=== PATIENT | male | born 1975 | race Caucasian/White ===

== ENCOUNTER 2021-07-13 16:18 | Inpatient (IN) | payer MEDICAID, SELFPAY ==
[2021-07-13 16:20] VITALS: BP 155/109; PULSE 103; RESP 17; TEMP 36.3; O2SAT 95; BMI 36.3
--- NOTE | 2021-07-13 16:33 | EDS_ITS ---
HPI History of Present Illness Chief Complaint: Substance Abuse Informant: patient Narrative Narrative: Patient presents requesting detox from alcohol. He lives in [place] and went to a detox center in [place] who did not have any bed availability. It was recommended he come in here for detox. Patient states he has been drinking regularly for the last 5 or 6 years. He usually drinks 1/5 of alcohol a day. Last drink was approximately 5 hours ago. Patient states he tried going through an outpatient program a couple years ago. He did have significant withdrawal symptoms but never had seizure. He states he is currently on Suboxone as well and has been on this for the past 2 years. He had previously used heroin but states that last use was 5 or [address] [facility] Medical History Anxiety Hypertension Allergy/AdvReac Type Severity Reaction Status Date / Time No Known Allergies Allergy Verified 07/13/21 16:19 Social History (Updated 07/13/21 @ 16:[address] Keturah Nation MD) Smoking Status: Current every day smoker tobacco type: cigarettes alcohol intake: current alcohol intake frequency: 3 or more drinks per day ROS ROS ED Constitutional Constitutional ED: Denies chills or fever(s) Eyes Eyes: Denies change in vision ENT ENT ED: Denies sore throat Cardiovascular Cardiovascular: Denies chest pain Respiratory/Chest Respiratory/Chest: Reports other Details: Wheezing ; Denies cough or dyspnea Gastrointestinal Gastrointestinal: Denies abdominal pain, diarrhea, nausea or vomiting Genitourinary Genitourinary ED: Denies dysuria Musculoskeletal Musculoskeletal: Denies back pain Integumentary Denies rash Neurologic Neurologic: Denies headache(s) or weakness Allergic/Immunologic Allergic/Immunologic ED: Denies urticaria EXAM Physical Exam Const Vital Signs: 07/13/21 16:20 Temperature 97.3 F L Temperature Source Temporal Pulse Rate 103 H Respiratory Rate 17 Blood Pressure 155/109 H Blood Pressure Mean 124 Pulse Ox 95 Oxygen Delivery Method Room Air Positive well nourished and well developed General Appearance ED: well developed HEENT Reports normocephalic and head/scalp atraumatic Eyes PERRL and EOMs intact bilaterally Neck supple Chest Wall inspection of chest normal and palpation of chest normal Resp normal respiratory effort Resp Narrative: Mild bilateral expiratory wheezes throughout. Auscultation: wheezes expiratory wheezes Cardio regular rate and regular rhythm GI normal to inspection, nondistended, normoactive bowel sounds Palpation: soft Extremity normal to inspection Neuro oriented x3 and no sensory deficits noted Sensorium / Orientation: alert Motor Exam: strength 5/5 throughout Psych mental status grossly normal Skin no rashes or lesions noted MDM MDM MDM Narrative Medical decision making narrative: Lab work for addiction medicine is undertaken. Lab Data Attestation: I reviewed the patient's lab results. Labs: Laboratory Results - last 24 hr 07/13/21 07/13/21 07/13/21 16:40 16:42 16:42 WBC 8.8 RBC 5.10 Hgb 16.6 H Hct 49.2 MCV 96.5 H MCH 32.5 H MCHC 33.7 RDW Std Deviation 50.3 H RDW Coeff of Richa 14.1 Plt Count 258 MPV 8.7 Immature Gran % (Auto) 0.200 Neut % (Auto) 58.7 Lymph % (Auto) 28.3 [place] % (Auto) 8.4 Eos % (Auto) 3.6 Baso % (Auto) 0.8 Absolute Neuts (auto) 5.2 Absolute Lymphs (auto) 2.49 Nucleated RBC % 0 Sodium 141 Potassium 3.6 Chloride 109 H Carbon Dioxide 28.0 Anion Gap 4 L BUN 9 Creatinine 0.85 Estim Creat Clear Calc 107.29 Est GFR (MDRD) Af Amer 126 Est GFR (MDRD) Non-Af 104 BUN/Creatinine Ratio 10.6 Glucose 108 H Calcium 8.3 L Total Bilirubin 0.30 AST 475 H ALT 478 H Alkaline Phosphatase 112 Total Protein 8.0 Albumin 3.4 Globulin 4.6 H Albumin/Globulin Ratio 0.7 L Urine Opiates Screen NEGATIVE Urine Methadone Screen NEGATIVE Ur Barbiturates Screen NEGATIVE Ur Phencyclidine Scrn NEGATIVE Ur Amphetamines Screen NEGATIVE U Methamphetamin-MDMA NEGATIVE U Benzodiazepines Scrn NEGATIVE Urine Cocaine Screen NEGATIVE U Cannabinoids Screen NEGATIVE Ur Drug Screen Comment Ethyl Alcohol 07/13/21 16:42 WBC RBC Hgb Hct MCV MCH MCHC RDW Std Deviation RDW Coeff of Richa Plt Count MPV Immature Gran % (Auto) Neut % (Auto) Lymph % (Auto) [place] % (Auto) Eos % (Auto) Baso % (Auto) Absolute Neuts (auto) Absolute Lymphs (auto) Nucleated RBC % Sodium Potassium Chloride Carbon Dioxide Anion Gap BUN Creatinine Estim Creat Clear Calc Est GFR (MDRD) Af Amer Est GFR (MDRD) Non-Af BUN/Creatinine Ratio Glucose Calcium Total Bilirubin AST ALT Alkaline Phosphatase Total Protein Albumin Globulin Albumin/Globulin Ratio Urine Opiates Screen Urine Methadone Screen Ur Barbiturates Screen Ur Phencyclidine Scrn Ur Amphetamines Screen U Methamphetamin-MDMA U Benzodiazepines Scrn Urine Cocaine Screen U Cannabinoids Screen Ur Drug Screen Comment Ethyl Alcohol 349.0 H* Treatment and Re-Evaluation Comments:: Lab work is significant for transaminitis with ALT and AST in the 470 range. Alcohol level is 349. Patient has signed the detox agreement for the hospital. I will speak with the hospitalist regarding admission. Discharge Plan Triage Chief Complaint: Substance Abuse ED Provider: Keturah Nation Dx/Rx/DC Orders Clinical Impression: Desire for detoxification Referrals: EDSON FERNANDES [Other] Disposition Disposition: Acute Care Hospital [facility]
[2021-07-13 17:05] LABS: Amphetamine Urine VISTA NEGATIVE (<1000 ng/mL); Barbiturate Urine VISTA NEGATIVE (< 200 ng/mL); Benzodiazepine Urine VISTA NEGATIVE (< 200 ng/mL); Cocaine Urine VISTA NEGATIVE (< 300 ng/mL); Ecstacy Urine VISTA NEGATIVE (< 500 ng/mL); Methadone Urine VISTA NEGATIVE (< 300 ng/mL); PCP Urine VISTA NEGATIVE (< 25 ng/mL); THC Urine VISTA NEGATIVE (< 50 ng/mL); Vista UDS pH Range 5
[2021-07-13 17:06] LABS: Absolute Lymphocyte Count 2.49 X10^3/uL (0.83-4.51); Absolute Neutrophil Count 5.2 X10^3/uL (2.0-7.7); Basophil# 0.07 X10^3/uL; Basophil% 0.8 % (0-1); Eosinophil# 0.32 X10^3/uL; Eosinophils% 3.6 % (0-5); Hematocrit 49.2 % (40-54); Hemoglobin 16.6 g/dL (13.0-16.5); Lymphocyte # 2.49 X10^3/ul (0.83-4.51); Lymphocyte % 28.3 % (19-41); Mean Corp Hgb Conc 33.7 g/dL (32-36); Mean Corpuscular Hgb 32.5 pg (27.0-32.0); Mean Corpuscular Volume 96.5 fL (80-94); Mean Platelet Vol. 8.7 fl (6.2-12.0); Monocyte# 0.74 X10^3/uL; Monocyte% 8.4 % (0-10); NRBC Flagged by Analyzer 0 % (0-5); Neutrophil # 5.15 X10^3/uL (2.7-7.7); Neutrophil % 58.7 % (47-70); Platelet Count 258 K/mm3 (150-450); RBC Distribution Width CV 14.1 % (11.6-14.6); RBC Distribution Width SD 50.3 fl (35.1-43.9); White Blood Count 8.8 K/mm3 (4.4-11.0)
[2021-07-13 17:23] LABS: ALB/GLOB Ratio 0.7 RATIO (0.9-2.4); AST(SGOT) 475 U/L (15-37); Alanine Aminotransfer ALT/SGPT 478 U/L (16-61); Albumin, Serum 3.4 g/dL (3.2-5.0); Alkaline Phosphatase 112 U/L (45-117); Anion Gap 4 (5-15); BUN 9 mg/dL (7-18); BUN/Creat Ratio 10.6 RATIO (10-20); Calcium,Total 8.3 mg/dL (8.5-10.1); Chloride 109 mmol/L (98-107); Creatinine, Serum 0.85 mg/dL (0.70-1.30); EST Glomerular Filtration Rate 104 mL/min (>60); Est Glom Filt Rate - Afr Amer 126 mL/min (>60); Estimated Creatinine Clearance 107.29 ml/min; Globulin 4.6 g/dL (2.2-4.2); Glucose 108 mg/dL (74-106); Potassium 3.6 mmol/L (3.5-5.1); Sodium Level 141 mmol/L (136-145)
--- NOTE | 2021-07-13 17:45 | NURSING ---
MED SURG JOPPERI ALCOHOL DETOX
--- NOTE | 2021-07-13 18:07 | HP.PCM.HOS_ITS ---
HPI - General General Date of Admission: 07/13/21 Date of Service: 07/13/21 Chief Complaint: alcohol withdrawal HPI Narrative ALEC MOJICA, is a 46 M who presents seeking treatment for alcohol withdrawal. Patient drinks 1/5 of liquor daily. States that he has tried stopping and starts getting shakes and get some Xanax off the street to help him with some of his symptoms but oysters swords back to drinking. Patient was advised by his primary care physician is also av specialist to come to [facility] for further treatment. Patient had drug screen that was negative but his alcohol level was 349. He received albuterol in the emergency room. Patient's last drink was about 5 hours prior to arrival. [facility] Medical History (Updated 07/13/21 @ 18:[address] Deonte Vieyra DO) Anxiety Hepatitis C Heroin abuse Hypertension Allergy/AdvReac Type Severity Reaction Status Date / Time No Known Allergies Allergy Verified 07/13/21 16:19 Family History (Updated 07/13/21 @ 18:[address] Deonte Vieyra DO) Other Addiction Social History (Updated 07/13/21 @ 18:[address] Deonte Vieyra DO) Smoking Status: Heavy Smoker (>10/day) alcohol intake: current alcohol intake frequency: 3 or more drinks per day substance use type: former substance user Date of last use: Heroin and other details: Illicit benzodiazepines ROS ROS Narrative Nausea, vomiting. Tremulousness. Denies hallucinations. All review of systems were negative except as mentioned above in the history of present illness and the other review of systems. Vital Signs Vital Signs Vital Signs: 07/13/21 16:20 Temperature 36.3 C L Temperature Source Temporal Pulse Rate 103 H Respiratory Rate 17 Blood Pressure 155/109 H Blood Pressure Mean 124 Pulse Ox 95 Oxygen Delivery Method Room Air Weight Weight: 108.272 kg Body Mass Index (BMI) 36.3 Physical Exam Const alert and no apparent distress General Appearance: cooperative HEENT normocephalic and head/scalp atraumatic Eyes PERRL Resp normal respiratory effort, no retractions, no use of accessory muscles and clear to auscultation bilaterally Cardio regular rate, regular rhythm, S1 normal heart sound and S2 normal heart sound GI normal to inspection, nondistended, normoactive bowel sounds, soft to palpation, non-tender and non-distended Extremity normal to inspection Skin no rashes or lesions noted Psych Mood & Affect: anxious Results Lab / Micro Data Attestation: I reviewed the patient's lab results. Result Diagrams: 07/13/21 16:42 07/13/21 16:42 Labs: Laboratory Results - last 24 hr 07/13/21 16:40: Urine Opiates Screen NEGATIVE, Urine Methadone Screen NEGATIVE, Ur Barbiturates Screen NEGATIVE, Ur Phencyclidine Scrn NEGATIVE, Ur Amphetamines Screen NEGATIVE, U Methamphetamin-MDMA NEGATIVE, U Benzodiazepines Scrn NEGATIVE, Urine Cocaine Screen NEGATIVE, U Cannabinoids Screen NEGATIVE, Ur Drug Screen Comment 07/13/21 16:42: WBC 8.8, RBC 5.10, Hgb 16.6 H, Hct 49.2, MCV 96.5 H, MCH 32.5 H, MCHC 33.7, RDW Std Deviation 50.3 H, RDW Coeff of Richa 14.1, Plt Count 258, MPV 8.7, Immature Gran % (Auto) 0.200, Neut % (Auto) 58.7, Lymph % (Auto) 28.3, [place] % (Auto) 8.4, Eos % (Auto) 3.6, Baso % (Auto) 0.8, Absolute Neuts (auto) 5.2, Absolute Lymphs (auto) 2.49, Nucleated RBC % 0 07/13/21 16:42: Sodium 141, Potassium 3.6, Chloride 109 H, Carbon Dioxide 28.0, Anion Gap 4 L, BUN 9, Creatinine 0.85, Estim Creat Clear Calc 107.29, Est GFR (MDRD) Af Amer 126, Est GFR (MDRD) Non-Af 104, BUN/Creatinine Ratio 10.6, Glucose 108 H, Calcium 8.3 L, Total Bilirubin 0.30, AST 475 H, ALT 478 H, Alkaline Phosphatase 112, Total Protein 8.0, Albumin 3.4, Globulin 4.6 H, Albumin/Globulin Ratio 0.7 L 07/13/21 16:42: Ethyl Alcohol 349.0 H* Micro: Microbiology 07/13/21 16:40 Nasal Secretion SARS-CoV-2 Antigen (Rapid) - Final Assessment & Plan Assessment/Plan (1) Alcohol withdrawal: QUALIFIERS: Complication of substance-induced condition: uncomplicated Qualified Code(s): F10.230 - Alcohol dependence with withdrawal, uncomplicated PLAN: 1. Acute alcohol withdrawal * Patient has a history of alcohol withdrawal seizures as well as delirium tremens. * Patient will be started on phenobarbital but is possible the patient may have more severe symptoms warranting more aggressive treatment * Thiamine and folate * Addiction medicine to see and to facilitate outpatient treatment program. Patient was going to a program in [place] but would prefer something closer as he lives in [place]. 2. History of heroin abuse * On Suboxone as outpatient. Verified with [facility] 3. Anxiety * Will complicate long-term care and recovery * Patient would benefit from treatment but would hold off at this time 4. Hepatitis C * AST and ALT are 475 and 478, respectively. * Patient not undergoing treatment at this time given his ongoing alcohol treatment. * Follow-up with infectious disease or gastroenterology as outpatient once he can maintain sobriety to see if he be a candidate for treatment. 5. VTE prophylaxis: Not indicated. Encourage ambulation. Charges/Coding Visit Charges Inpatient E&M: 55593 Init Hosp L2
[2021-07-13 18:09] VITALS: BP 146/101; PULSE 78; RESP 16; TEMP 37.1; O2SAT 95
[2021-07-13 18:27] VITALS: BP 141/100; PULSE 83; RESP 18; TEMP 36.6; O2SAT 97; BMI 36.3
[2021-07-13] MEDS: Phenobarbital 32.4 MG Tablet PO ×2 (19:41→23:16)
[2021-07-13] MEDS: hydrOXYzine PAM 25 MG Capsule 50 MG PO (20:33)
[2021-07-13 23:00] VITALS: RESP 15
[2021-07-13 23:13] VITALS: BP 142/103; PULSE 76; RESP 15; TEMP 36.4; O2SAT 94
[2021-07-13 23:22] VITALS: BP 142/103; PULSE 76; RESP 15; TEMP 36.4; O2SAT 94
[2021-07-14] VITALS (7 sets, daily range): BP systolic 145–170; BP diastolic 75–120; PULSE 62–75; RESP 15–18; TEMP 36.4–37.3; O2SAT 94–97
[2021-07-14] MEDS: Phenobarbital 32.4 MG Tablet PO ×6 (03:24→22:24)
[2021-07-14] MEDS: hydrOXYzine PAM 25 MG Capsule 50 MG PO ×3 (07:18→22:24)
--- NOTE | 2021-07-14 08:42 | NURSING ---
pt in bed resting well now after vistaril. pt not feeling like eating breakfast at this time. will give am meds with next phenobarb dose to promote rest. pt instructed to call if need for any prn meds.
[2021-07-14] MEDS: Ondansetron 8 MG Tablet PO ×2 (10:37→22:24)
[2021-07-14] MEDS: traZODone 100 MG Tablet PO (10:37)
[2021-07-14] MEDS: Thiamine Hydrochloride 100 MG Tablet PO (10:38)
[2021-07-14] MEDS: Folic Acid 1 MG Tablet PO (10:38)
--- NOTE | 2021-07-14 11:15 | ADDICTION ---
This fiction and nonfiction writer prose met with PT to conduct ASAM, MSE, AUDIT, DUDIT assessments and to plan for d/c. PT A+Ox4 and participated actively. PT plans to f/u with residential treatment once placement is found.
--- NOTE | 2021-07-14 12:39 | NURSING ---
bp elevated and clonodine order in now as well as home med list
--- NOTE | 2021-07-14 12:45 | PCM.PN.HOSP ---
Subjective Subjective Resting comfortably, hypertensive will restart his home meds. CIWA of 4 Objective Data Objective Data Vital Signs: Vital Signs Temp Pulse Resp BP Pulse Ox 97.6 F L 75 16 160/118 H 95 07/14/21 11:00 07/14/21 11:00 07/14/21 11:00 07/14/21 11:00 07/14/21 11:00 Oxygen Delivery Method Room Air Weight: 238 lb 11.2 oz Body Mass Index (BMI) 36.3 Intake & Output: Intake and Output for Last 24 Hours 07/13/21 07/14/21 07/15/21 03:59 03:59 03:59 Intake Total 460 / 460 200 / 200 Balance 460 / 460 200 / 200 Lab / Micro Data Result Diagrams: 07/13/21 16:42 07/13/21 16:42 Labs: Laboratory Results - last 24 hr 07/13/21 16:40: Urine Opiates Screen NEGATIVE, Urine Methadone Screen NEGATIVE, Ur Barbiturates Screen NEGATIVE, Ur Phencyclidine Scrn NEGATIVE, Ur Amphetamines Screen NEGATIVE, U Methamphetamin-MDMA NEGATIVE, U Benzodiazepines Scrn NEGATIVE, Urine Cocaine Screen NEGATIVE, U Cannabinoids Screen NEGATIVE, Ur Drug Screen Comment 07/13/21 16:42: WBC 8.8, RBC 5.10, Hgb 16.6 H, Hct 49.2, MCV 96.5 H, MCH 32.5 H, MCHC 33.7, RDW Std Deviation 50.3 H, RDW Coeff of Richa 14.1, Plt Count 258, MPV 8.7, Immature Gran % (Auto) 0.200, Neut % (Auto) 58.7, Lymph % (Auto) 28.3, [place] % (Auto) 8.4, Eos % (Auto) 3.6, Baso % (Auto) 0.8, Absolute Neuts (auto) 5.2, Absolute Lymphs (auto) 2.49, Nucleated RBC % 0 07/13/21 16:42: Sodium 141, Potassium 3.6, Chloride 109 H, Carbon Dioxide 28.0, Anion Gap 4 L, BUN 9, Creatinine 0.85, Estim Creat Clear Calc 107.29, Est GFR (MDRD) Af Amer 126, Est GFR (MDRD) Non-Af 104, BUN/Creatinine Ratio 10.6, Glucose 108 H, Calcium 8.3 L, Total Bilirubin 0.30, AST 475 H, ALT 478 H, Alkaline Phosphatase 112, Total Protein 8.0, Albumin 3.4, Globulin 4.6 H, Albumin/Globulin Ratio 0.7 L 07/13/21 16:42: Ethyl Alcohol 349.0 H* Micro: Microbiology 07/13/21 16:40 Nasal Secretion SARS-CoV-2 Antigen (Rapid) - Final Physical Exam Const alert, oriented x3 and no apparent distress General Appearance: cooperative HEENT normocephalic and moist oral mucous membranes Eyes PERRL, EOMs intact bilaterally and conjunctivae normal Neck supple and no JVD Resp normal respiratory effort, no retractions, no use of accessory muscles and clear to auscultation bilaterally Auscultation: Negative for crackles, rales, rhonchi or wheezes Cardio regular rate, regular rhythm, S1 normal heart sound, S2 normal heart sound and no murmurs GI soft to palpation, non-tender and non-distended; Negative for hepatosplenomegaly Extremity no clubbing, cyanosis or edema Skin no rashes or lesions noted Neuro no focal motor deficits and no sensory deficits noted Psych affect normal Appearance: appropriate Assessment & Plan Assessment/Plan (1) Alcohol withdrawal: QUALIFIERS: Complication of substance-induced condition: uncomplicated Qualified Code(s): F10.230 - Alcohol dependence with withdrawal, uncomplicated PLAN: 1. Acute alcohol withdrawal/history of heroin abuse/anxiety/hepatitis C -He does have a history of withdrawal seizures and DTs, continue with the phenobarbital taper per the alcohol withdrawal protocol -If necessary can start him on Librium -Addiction medicine is looking into residential placement and he is from [place] would prefer something closer -He does have a history of heroin abuse, can continue his Suboxone while here -He does have a history of hepatitis C that he cannot maintain treatment for until he is sober and off of alcohol and heroin recommend that he follow-up as an outpatient with the GI DVT: Ambulation Charges/Coding Visit Charges Inpatient E&M: 32309 Subs Hosp L2
[2021-07-14] MEDS: Dicyclomine 10 MG Capsule 20 MG PO (13:45)
[2021-07-14] MEDS: Gabapentin 300 MG Capsule PO (13:45)
[2021-07-14] MEDS: BUPRENORPHINE HCL 8 MG TAB.SUBL SL ×2 (15:01→22:24)
[2021-07-14] MEDS: cloNIDine HCl 0.2 MG Tablet PO ×2 (15:20→22:24)
--- NOTE | 2021-07-14 15:55 | CHAPLAIN ---
Type of Pastoral Visit _x__ Initial Visit ___ Follow-up Visit ___ On-call Visit ___ General Patient Visit ___ Spiritual Assessment ___ Family Conference ___ Bereavement ___ Rapid Response ___ Code Blue ___ Other (describe below) Pastoral Care Referral From _x__ Patient ___ Family ___ Nurse ___ Physician ___ Fashion Consultant ___ Wet Press Tender ___ Other (describe below) Sacrament/Intervention _x__ Active listening ___ Anointing ___ Adventist ___ Bereavement ___ Communion _x__ Angie exploration ___ ___ Life review _x__ Prayer ___ Reconciliation ___ Sacrament of Sick _x__ Supportive presence ___ Wedding ___ Other (describe below) Pastoral Comments patient states he is tired and is not interested in company however he welcomes acknowledgement of support and the prayers of this cutting tool sharpener; pt states he has family support and a plan for counseling in place
[2021-07-14] MEDS: Acetaminophen 325 MG Tablet 650 MG PO ×2 (17:46→22:24)
[2021-07-14] MEDS: hydrALAZINE 20 MG/ML Vial 10 MG IV (18:48)
[2021-07-14] MEDS: 0.9% Saline Lock 10 ML Syringe IV (18:48)
[2021-07-14] MEDS: LORazepam 2 MG/ML Syringe 1 MG IV (18:49)
[2021-07-14] MEDS: LORazepam 1 MG Tablet PO (22:25)
[2021-07-15 02:54] VITALS: BP 131/88; PULSE 71; RESP 16; TEMP 37.2; O2SAT 97
[2021-07-15] MEDS: Phenobarbital 32.4 MG Tablet PO ×6 (02:58→22:57)
[2021-07-15] MEDS: LORazepam 1 MG Tablet PO ×4 (02:58→22:57)
[2021-07-15] MEDS: hydrOXYzine PAM 25 MG Capsule 50 MG PO ×3 (02:58→22:57)
[2021-07-15] MEDS: Thiamine Hydrochloride 100 MG Tablet PO (08:06)
[2021-07-15] MEDS: Folic Acid 1 MG Tablet PO (08:06)
[2021-07-15] MEDS: Sertraline 100 MG Tablet PO (10:10)
[2021-07-15] MEDS: cloNIDine HCl 0.2 MG Tablet PO ×2 (10:10→22:57)
[2021-07-15] MEDS: BUPRENORPHINE HCL 8 MG TAB.SUBL SL ×2 (10:11→22:57)
--- NOTE | 2021-07-15 10:51 | PCM.PN.HOSP ---
Subjective Subjective Seems much better now with the addition of Ativan as needed. We will continue both that and the phenobarbital. CIWA of 7 this morning Objective Data Objective Data Vital Signs: Vital Signs Temp Pulse Resp BP Pulse Ox 98.9 F 71 16 131/88 H 97 07/15/21 02:54 07/15/21 02:54 07/15/21 02:54 07/15/21 02:54 07/15/21 02:54 Oxygen Delivery Method Room Air Weight: 238 lb 11.2 oz Body Mass Index (BMI) 36.3 Intake & Output: Intake and Output for Last 24 Hours 07/14/21 07/15/21 07/16/21 03:59 03:59 03:59 Intake Total 460 / 460 700 / 700 Balance 460 / 460 700 / 700 Lab / Micro Data Result Diagrams: 07/13/21 16:42 07/13/21 16:42 Micro: Microbiology 07/13/21 16:40 Nasal Secretion SARS-CoV-2 Antigen (Rapid) - Final Physical Exam Const alert, oriented x3 and no apparent distress General Appearance: cooperative HEENT normocephalic and moist oral mucous membranes Eyes PERRL, EOMs intact bilaterally and conjunctivae normal Neck supple and no JVD Resp normal respiratory effort, no retractions, no use of accessory muscles and clear to auscultation bilaterally Auscultation: Negative for crackles, rales, rhonchi or wheezes Cardio regular rate, regular rhythm, S1 normal heart sound, S2 normal heart sound and no murmurs GI soft to palpation, non-tender and non-distended; Negative for hepatosplenomegaly Extremity no clubbing, cyanosis or edema Skin no rashes or lesions noted Neuro no focal motor deficits and no sensory deficits noted Psych affect normal Appearance: appropriate Assessment & Plan Assessment/Plan (1) Alcohol withdrawal: QUALIFIERS: Complication of substance-induced condition: uncomplicated Qualified Code(s): F10.230 - Alcohol dependence with withdrawal, uncomplicated PLAN: 1. Acute alcohol withdrawal/history of heroin abuse/anxiety/hepatitis C -He does have a history of withdrawal seizures and DTs, continue with the phenobarbital taper per the alcohol withdrawal protocol -Continue with Ativan as needed -Addiction medicine is looking into residential placement and he is from [place] would prefer something closer -He does have a history of heroin abuse, can continue his Suboxone while here -He does have a history of hepatitis C that he cannot obtain treatment for until he is sober and off of alcohol and heroin recommend that he follow-up as an outpatient with the GI DVT: Ambulation Charges/Coding Visit Charges Inpatient E&M: 27570 Subs Hosp L2
[2021-07-15 11:00] VITALS: BP 143/110; PULSE 78; RESP 16; TEMP 36.4; O2SAT 94
[2021-07-15 15:00] VITALS: BP 187/101; PULSE 82; RESP 18; TEMP 36.5; O2SAT 94
--- NOTE | 2021-07-15 15:22 | NURSING ---
rep from [facility] called in and pt talking with pt
[2021-07-15 16:26] VITALS: BP 187/101; PULSE 81
[2021-07-15] MEDS: hydrALAZINE 20 MG/ML Vial 10 MG IV (16:26)
[2021-07-15 18:22] VITALS: BP 153/118; PULSE 87; RESP 16; TEMP 36.2; O2SAT 95
[2021-07-15 20:37] VITALS: BP 156/97; PULSE 76; RESP 18; TEMP 36.6; O2SAT 97
[2021-07-16 03:00] VITALS: BP 149/90; PULSE 73; RESP 18; TEMP 36.6; O2SAT 94
[2021-07-16] MEDS: hydrOXYzine PAM 25 MG Capsule 50 MG PO ×3 (03:00→17:46)
[2021-07-16] MEDS: Phenobarbital 32.4 MG Tablet PO ×4 (03:00→21:00)
[2021-07-16 07:00] VITALS: BP 169/118; PULSE 69; RESP 16; TEMP 36.4; O2SAT 92
[2021-07-16] MEDS: cloNIDine HCl 0.2 MG Tablet PO ×2 (08:31→21:00)
[2021-07-16] MEDS: Sertraline 100 MG Tablet PO (08:31)
[2021-07-16] MEDS: Thiamine Hydrochloride 100 MG Tablet PO (08:31)
[2021-07-16] MEDS: Folic Acid 1 MG Tablet PO (08:31)
[2021-07-16] MEDS: LORazepam 1 MG Tablet PO (08:32)
--- NOTE | 2021-07-16 09:18 | PN.HOSP_ITS ---
Subjective Subjective Doing better with the addition of Ativan as needed. Objective Data Objective Data Vital Signs: Vital Signs Temp Pulse Resp BP Pulse Ox 97.6 F L 69 16 169/118 H 92 07/16/21 07:00 07/16/21 07:00 07/16/21 07:00 07/16/21 07:00 07/16/21 07:00 Oxygen Delivery Method Room Air Weight: 238 lb 11.2 oz Body Mass Index (BMI) 36.3 Intake & Output: Intake and Output for Last 24 Hours 07/15/21 07/16/21 07/17/21 03:59 03:59 03:59 Intake Total 700 / 700 500 / 500 540 / 540 Balance 700 / 700 500 / 500 540 / 540 Lab / Micro Data Result Diagrams: 07/13/21 16:42 07/13/21 16:42 Micro: Microbiology 07/13/21 16:40 Nasal Secretion SARS-CoV-2 Antigen (Rapid) - Final Physical Exam Const alert, oriented x3 and no apparent distress General Appearance: cooperative HEENT normocephalic and moist oral mucous membranes Eyes PERRL, EOMs intact bilaterally and conjunctivae normal Neck supple and no JVD Resp normal respiratory effort, no retractions, no use of accessory muscles and clear to auscultation bilaterally Auscultation: Negative for crackles, rales, rhonchi or wheezes Cardio regular rate, regular rhythm, S1 normal heart sound, S2 normal heart sound and no murmurs GI soft to palpation, non-tender and non-distended; Negative for hepatosplenomegaly Extremity no clubbing, cyanosis or edema Skin no rashes or lesions noted Neuro no focal motor deficits and no sensory deficits noted Psych affect normal Appearance: appropriate Assessment & Plan Assessment/Plan (1) Alcohol withdrawal: QUALIFIERS: Complication of substance-induced condition: uncomplicated Qualified Code(s): F10.230 - Alcohol dependence with withdrawal, uncomplicated PLAN: 1. Acute alcohol withdrawal/history of heroin abuse/anxiety/hepatitis C -He does have a history of withdrawal seizures and DTs, continue with the phenobarbital taper per the alcohol withdrawal protocol -Continue with Ativan as needed -Addiction medicine is looking into residential placement and he is from [place] would prefer something closer. Today he got a little bit agitated and said that we cannot force him to go to residential treatment despite the fact that it was his idea and his request. I discussed with him that he can leave whenever he wants, this seemed to have calmed him down and he is willing to stay to continue with the withdrawal protocol -He does have a history of heroin abuse, can continue his Suboxone while here -He does have a history of hepatitis C that he cannot obtain treatment for until he is sober and off of alcohol and heroin recommend that he follow-up as an outpatient with the GI 2. HTN -His clonidine was restarted on admission however his blood pressure still elevated therefore we will trial him on Norvasc DVT: Ambulation Charges/Coding Visit Charges Inpatient E&M: 52549 Subs Hosp L2
--- NOTE | 2021-07-16 10:07 | NURSING ---
0900- pt seemed calmer after speaking to on the phone this am. breakfast order called down for pt.
[2021-07-16] MEDS: BUPRENORPHINE HCL 8 MG TAB.SUBL SL ×2 (10:17→21:01)
[2021-07-16] MEDS: amLODIPine 10 MG Tablet PO (10:18)
[2021-07-16 12:14] VITALS: BP 137/90; PULSE 79; RESP 18; TEMP 36.7; O2SAT 100
[2021-07-16] MEDS: Acetaminophen 325 MG Tablet 650 MG PO (12:17)
[2021-07-16 14:35] VITALS: BP 131/90; PULSE 79; RESP 18; TEMP 36.8; O2SAT 100
[2021-07-16] MEDS: Gabapentin 300 MG Capsule PO (19:44)
[2021-07-16 19:46] VITALS: BP 139/93; PULSE 89; RESP 18; TEMP 36.8; O2SAT 96
[2021-07-16] MEDS: traZODone 100 MG Tablet PO (23:15)
[2021-07-17] MEDS: LORazepam 1 MG Tablet PO (00:05)
[2021-07-17 03:00] VITALS: BP 123/83; PULSE 60; RESP 18; TEMP 36.7; O2SAT 94
[2021-07-17] MEDS: Phenobarbital 32.4 MG Tablet PO ×2 (03:13→09:09)
[2021-07-17 09:10] VITALS: BP 130/77; PULSE 73; RESP 16; TEMP 36.6; O2SAT 96
[2021-07-17] MEDS: Sertraline 100 MG Tablet PO (09:10)
[2021-07-17] MEDS: cloNIDine HCl 0.2 MG Tablet PO (09:10)
[2021-07-17] MEDS: Thiamine Hydrochloride 100 MG Tablet PO (09:10)
[2021-07-17] MEDS: Folic Acid 1 MG Tablet PO (09:11)
[2021-07-17] MEDS: BUPRENORPHINE HCL 8 MG TAB.SUBL SL (09:16)
[2021-07-17] MEDS: amLODIPine 10 MG Tablet PO (09:16)
--- NOTE | 2021-07-17 09:43 | NURSING ---
Addendum entered by Arti Kaufman 07/17/21 10:41: pt states he has someone coming to pick him up but they are not here yet, requesting to go outside to smoke, informed pt that he cannot come back to his room after he leaves, verbalized understanding, reminded him to remove nicotine patch prior to smoking. also this RN requested to hold on to pt keys until his ride is physically here, pt agreeable and provided RN with car keys. Original Note: pt requesting to leave, explained that he would be leaving against medical advice and that we cannot allow him to drive due to the medications in his system. he is agreeable to waiting on unit until his ride arrives.
--- NOTE | 2021-07-17 10:34 | PCM.PN.HOSP ---
Subjective Subjective Feels much better, doing well overnight. No new issues. Objective Data Objective Data Vital Signs: Vital Signs Temp Pulse Resp BP Pulse Ox 97.9 F 73 16 130/77 H 96 07/17/21 09:10 07/17/21 09:10 07/17/21 09:10 07/17/21 09:10 07/17/21 09:10 Oxygen Delivery Method Room Air Weight: 238 lb 11.2 oz Body Mass Index (BMI) 36.3 Intake & Output: Intake and Output for Last 24 Hours 07/16/21 07/17/21 07/18/21 03:59 03:59 03:59 Intake Total 500 / 500 1400 / 1400 Balance 500 / 500 1400 / 1400 Lab / Micro Data Result Diagrams: 07/13/21 16:42 07/13/21 16:42 Micro: Microbiology 07/13/21 16:40 Nasal Secretion SARS-CoV-2 Antigen (Rapid) - Final Physical Exam Const alert, oriented x3 and no apparent distress General Appearance: cooperative HEENT normocephalic and moist oral mucous membranes Eyes PERRL, EOMs intact bilaterally and conjunctivae normal Neck supple and no JVD Resp normal respiratory effort, no retractions, no use of accessory muscles and clear to auscultation bilaterally Auscultation: Negative for crackles, rales, rhonchi or wheezes Cardio regular rate, regular rhythm, S1 normal heart sound, S2 normal heart sound and no murmurs GI soft to palpation, non-tender and non-distended; Negative for hepatosplenomegaly Extremity no clubbing, cyanosis or edema Skin no rashes or lesions noted Neuro no focal motor deficits and no sensory deficits noted Psych affect normal Appearance: appropriate Assessment & Plan Assessment/Plan (1) Alcohol withdrawal: QUALIFIERS: Complication of substance-induced condition: uncomplicated Qualified Code(s): F10.230 - Alcohol dependence with withdrawal, uncomplicated PLAN: 1. Acute alcohol withdrawal/history of heroin abuse/anxiety/hepatitis C -He does have a history of withdrawal seizures and DTs, continue with the phenobarbital taper per the alcohol withdrawal protocol -Continue with Ativan as needed -Addiction medicine is looking into residential placement and he is from [place] would prefer something closer. Today he got a little bit agitated and said that we cannot force him to go to residential treatment despite the fact that it was his idea and his request. I discussed with him that he can leave whenever he wants, this seemed to have calmed him down and he is willing to stay to continue with the withdrawal protocol -He does have a history of heroin abuse, can continue his Suboxone while here -He does have a history of hepatitis C that he cannot obtain treatment for until he is sober and off of alcohol and heroin recommend that he follow-up as an outpatient with the GI -Wants to leave AMA, I discussed with him that it would be best for him to stay to go to residential treatment but he does not want to do this. He says that he feels great and is already been here for 5 days. I said that he feels good because the medications that he still receiving including the Ativan which she had received at midnight. He still cannot leave [place] 2. HTN -His clonidine was restarted on admission however his blood pressure still elevated therefore we will trial him on Norvasc -Discussed that he will need to follow-up with his PCP for monitoring of his blood pressure. DVT: Ambulation Charges/Coding Visit Charges Inpatient E&M: 45598 Subs Hosp L2
--- NOTE | 2021-07-17 11:55 | NURSING ---
keys given to patients friend who is driving him home. pt and friend aware that he can not drive due to medications he was given while at the hospital. pt verifies understanding and agreeable.
== END 2021-07-17 10:30 | disposition left against medical advice (07) | DRG 770 ==
LOC: ED 17:38 → MS2 18:26
PROVIDERS: Emergency Provider Emergency Medicine; Visit Provider Family Medicine
DX: F10.230 Alcohol dependence with withdrawal, uncomplicated (principal); F11.10 Opioid abuse, uncomplicated; F17.210 Nicotine dependence, cigarettes, uncomplicated; F41.9 Anxiety disorder, unspecified; I10 Essential (primary) hypertension; Z86.19 Personal history of other infectious and parasitic diseases; Y90.8 Blood alcohol level of 240 mg/100 ml or more
CPT/HCPCS: 80053; 80307; 82077; 85025; 87426; 94640; 99284; 99406; A4216

== ENCOUNTER 2021-09-27 23:07 | Observation (INO) | payer MEDICAID, SELFPAY ==
[2021-09-27 22:38] VITALS: BMI 33.6
[2021-09-27 22:48] VITALS: BP 167/103; PULSE 70; RESP 17; TEMP 35.8; O2SAT 96
--- NOTE | 2021-09-27 22:53 | EKG12_ITS ---
Test Reason : CP Blood Pressure : / mmHG Vent. Rate : 065 BPM Atrial Rate : 065 BPM P-R Int : 128 ms QRS Dur : 106 ms QT Int : 406 ms P-R-T Axes : -18 -21 -09 degrees QTc Int : 422 ms Normal sinus rhythm Normal ECG No previous ECGs available Confirmed by PORFIRIO HERNANDEZ, NOHEMI ([id number]), book editor REID DE LA PAZ ([id number]) on 09/29/2021 10:14:26 AM Referred By: Confirmed By:NOHEMI MONROY MD
[2021-09-27 23:04] VITALS: PULSE 67
--- NOTE | 2021-09-27 23:07 | ECHOD_ITS ---
Reason For Study: Chest Pain Procedure This was a 2D Doppler, Color Flow transthoracic echocardiogram. Exam performed portable in patient room. The exam was abbreviated due to the COVID 19 protocol. Left Ventricle Normal LV size. Mild concentric left ventricular hypertrophy. Left ventricular systolic function is normal. The estimated ejection fraction is 55 %. No regional wall motion abnormalities noted. Right Ventricle Normal RV size. Normal systolic function. Great Vessels Normal aortic root. The pulmonary artery is normal size. Pericardium/Pleural No pericardial effusion. MMode/2D Measurements & Calculations LVIDd: 5.8 cm IVSd: 1.3 cm LVIDs: 4.2 cm LVPWd: 1.3 cm FS: 28.2 % ECHO/Echo Complete Interpretation Summary Normal LV size. Left ventricular systolic function is normal. The estimated ejection fraction is 55 %. Mild concentric left ventricular hypertrophy. Ordering Physician: Melba Verduzco Performed By: Shantel Saab RDCS, RVT
--- NOTE | 2021-09-27 23:13 | PCM.HP.STD ---
HPI - General General Date of Admission: 09/27/21 Date of Service: 09/27/21 Chief Complaint: Chest pain HPI Narrative ALEC MOJICA, is a 46 M who presented to the emergency department at [facility] [place] on 09/27/2021 with a history of acute onset midsternal chest pain that started 1 day prior to his presentation and was constant in nature since then. He had no radiation on presentation but did report some radiation to his left arm the day prior. He had no diaphoresis, dyspnea, nausea, or emesis. While in the emergency department at [place] he was placed on Nitropaste and had symptom improvement. His vital signs were stable in the emergency department other than a mildly elevated blood pressure at 153/108. His oxygen saturations were 96 on room air. His CBC was unremarkable, his BMP was unremarkable other than some mild hyponatremia with a sodium of 132. A rapid Covid test was obtained per ED protocol at [facility] and was found to be positive. The patient has been vaccinated with only 1 Pfizer vaccination in May. He has had no symptoms consistent with COVID-19. A CTA was performed given his chest pain was found to have no PE or acute dissection along with no other acute findings. High-sensitivity troponin was obtained and his initial was 15, a second was 17 and a third was 12. The upper limit of normal on their range was 12 and therefore he had mild troponin elevation. His EKG was normal sinus rhythm without any acute evidence of ischemia. He was also treated with aspirin in addition to the Nitropaste and given Tylenol x1 dose in the emergency department at [facility] [place]. Given mildly elevated troponin on their range request for transfer for admission was made and the patient was accepted. Unfortunately with the patient being Covid positive stress test would not be able to be performed at this time and the patient is aware. The plan is to cycle his cardiac enzymes contain an echocardiogram and make decisions from those results. The patient also admits to ongoing alcohol use/addiction. He indicates he drinks at least 6 beers a day and also drinks whiskey on a fairly regular basis but not daily. He has had withdrawal issues in the past. He is interested in quitting and we will therefore consult 180 for evaluation and placed on a phenobarbital taper. [facility] Medical History Anxiety EtOH dependence Hepatitis C Heroin abuse Hypertension Home Medications buprenorphine-naloxone [Suboxone] 1 tab SUBLINGUAL BID 07/14/21 [History Last Taken 09/26/21] clonidine HCl 0.2 mg PO BID 07/14/21 [History Last Taken 09/26/21] sertraline 100 mg PO DAILY 07/14/21 [History Last Taken 09/26/21] Allergy/AdvReac Type Severity Reaction Status Date / Time No Known Allergies Allergy Verified 09/27/21 22:46 Family History Other Addiction Surgical History no surgical history no surgical history Social History (Updated 09/27/21 @ 23:[address] Melba Verduzco DO) Smoking Status: Heavy Smoker (>10/day) alcohol intake: former substance use type: former substance user Date of last use: Heroin and other details: Illicit benzodiazepines ROS Constitutional Constitutional: Denies anorexia, change in weight, chills, fatigue, fever(s), malaise, night sweats, weakness or other Eyes Eyes: Denies blurry vision, change in eye color, change in vision, discharge from eye(s), double vision, erythema, eye pain, loss of vision or other ENT HEENT: Denies abnormal hearing, dysphagia, ear pain, epistaxis, headache(s), hearing loss, nasal congestion, nasal discharge, post nasal drip, sinus pressure, sore throat or other Cardiovascular Cardiovascular: Reports chest pain and other Respiratory/Chest Respiratory/Chest: Denies cough, dyspnea, excessive phlegm production, hemoptysis, productive cough, shortness of breath at rest, shortness of breath with exertion, wheezing or other Gastrointestinal Gastrointestinal: Reports vomiting; Denies abdominal pain, coffee ground emesis, constipation, diarrhea, dyspepsia, hematemesis, hematochezia, loose stools, melena, nausea or other Genitourinary Genitourinary: Denies burning urination, difficulty urinating, dysuria, hematuria, nocturia, urinary frequency, urinary hesitancy, urinary incontinence, urinary urgency or other Musculoskeletal Musculoskeletal: Denies arthralgias, back pain, joint pain, joint stiffness, joint swelling, myalgias, neck pain or other Neurologic Neurologic: Denies abnormal gait, abnormal speech, confusion, disequilibrium, dizziness, focal weakness, headache(s), numbness, paresthesias, seizure-like activity, seizures, syncope, tingling, tremor(s) or other Psychiatric Psychiatric: Denies anxiety, depression, homicidal ideation, suicidal ideation or other Endocrine Endocrinology: Denies change in body appearance, cold intolerance, excessive sweating, heat intolerance, polydipsia, polyuria or other Hematologic/Lymphatic Hematologic/Lymphatic: Denies anemia, easy bleeding, easy bruising, lymphadenopathy or other Allergic/Immunologic Allergic/Immunologic: Denies rhinitis, hives, eczemia, asthma or other Vital Signs Vital Signs Vital Signs: 09/27/21 22:48 09/27/21 22:52 09/27/21 23:04 Temperature 96.5 F L Temperature Source Temporal Pulse Rate 70 67 Respiratory Rate 17 Respiratory Effort Normal Non-Labored Respiratory Depth Normal Respiratory Pattern Normal Blood Pressure 167/103 H Blood Pressure Mean 124 Blood Pressure Source Monitor Blood Pressure Position Supine Blood Pressure Location Right Arm Pulse Ox 96 Oxygen Delivery Method Room Air Room Air Weight Weight: 109.4 kg Body Mass Index (BMI) 33.6 Physical Exam Const alert, oriented x3 and no apparent distress Constitutional Narrative: Overweight middle-aged white male who appears older than stated age, pleasant, nontoxic seeing at bedside General Appearance: cooperative HEENT normocephalic, head/scalp atraumatic, hearing grossly normal bilaterally and moist oral mucous membranes HEENT Narrative: Edentulous, Mallampati 2, no thrush Eyes PERRL, EOMs intact bilaterally and conjunctivae normal Eyes Narrative: No scleral icterus Neck no lymphadenopathy, supple, no JVD and no carotid bruits Neck Narrative: Trachea midline, no thyroid enlargement Resp normal respiratory effort, no retractions, no use of accessory muscles and clear to auscultation bilaterally Auscultation: Negative for crackles, rales, rhonchi or wheezes Cardio regular rate, regular rhythm, S1 normal heart sound, S2 normal heart sound, no murmurs, no rub, no gallops, no clicks and no JVD GI normal to inspection, nondistended, normoactive bowel sounds, soft to palpation, non-tender and non-distended Extremity no clubbing, cyanosis or edema Peripheral Pulses: Yes pulses 2+ throughout Skin no rashes or lesions noted, no wounds, skin turgor normal, no jaundice, no petechiae and no mottling Neuro oriented x3, CN's II-XII intact bilaterally, moves all extremities and no focal motor deficits Sensorium / Orientation: awake and alert Speech: speech normal Motor Exam: strength 5/5 throughout Psych affect normal Psych Narrative: Very pleasant Results Lab / Micro Data Attestation: I reviewed the patient's lab results. Assessment & Plan Assessment/Plan (1) Chest pain: (2) COVID-19 virus infection: PLAN: Chest pain -Currently resolved with Nitropaste -Continue as needed sublingual nitroglycerin -Cycle cardiac enzymes -Check a.m. echocardiogram for wall motion abnormality -Given the fact that the patient is Covid positive we will not be able to perform a stress test at this time -If his cardiac enzymes are normal and his echocardiogram shows no wall motion abnormality I suspect we should be able to discharge him with recommendations for follow-up stress test once he has resolved his COVID-19 infection and out of quarantine -If he has troponin elevation and/or wall motion abnormality on his echocardiogram will likely need to consult cardiology -Check lipids -Continue aspirin daily -Patient did receive a 324 mg in the emergency department at [place] COVID-19 infection -Patient is overall asymptomatic -Treatment indicated at this time -Patient has had 1 dose of Pfizer vaccine -Recommend further vaccination after discharge and patient is out of quarantine Hypertension -Continue home clonidine -As needed hydralazine for systolic greater than 160 -Monitor for further needs History of opiate addiction/alcohol addiction -Continue home Suboxone -he is currently in remission with regards to opiate addiction -Has ongoing addiction issues with alcohol -Has had withdrawal in the past -Start phenobarbital taper -Supportive medications -CIWA -180 consultation Chronic hepatitis C -No acute issues Depression -Continue sertraline Tobacco abuse -Recommend cessation -Nicotine patch available DVT prophylaxis -Subcu Lovenox -SCDs CODE STATUS -Full code Charges/Coding Visit Charges Inpatient E&M: 33145 Init Hosp L3
[2021-09-27] MEDS: cloNIDine HCl 0.2 MG Tablet PO (23:35)
[2021-09-28] VITALS (9 sets, daily range): BP systolic 152–164; BP diastolic 104–109; PULSE 66–75; RESP 16–18; TEMP 36.6–37.1; O2SAT 95–99
[2021-09-28 00:19] LABS: Troponin-I HS 14 pg/mL (3.0-78.0)
[2021-09-28] MEDS: Phenobarbital 32.4 MG Tablet 97.2 MG PO ×3 (00:21→08:53)
[2021-09-28] MEDS: Gabapentin 300 MG Capsule PO (00:21)
[2021-09-28] MEDS: traZODone 100 MG Tablet PO (00:21)
[2021-09-28 03:18] LABS: Troponin-I HS 14 pg/mL (3.0-78.0)
[2021-09-28] MEDS: hydrALAZINE 20 MG/ML Vial 10 MG IV (05:10)
[2021-09-28] MEDS: 0.9% Saline Lock 10 ML Syringe IV (05:13)
[2021-09-28 06:34] LABS: Absolute Lymphocyte Count 1.48 X10^3/uL (0.83-4.51); Absolute Neutrophil Count 2.5 X10^3/uL (2.0-7.7); Basophil# 0.04 X10^3/uL; Basophil% 0.8 % (0-1); Eosinophil# 0.02 X10^3/uL; Eosinophils% 0.4 % (0-5); Hematocrit 41.3 % (40-54); Hemoglobin 13.8 g/dL (13.0-16.5); Lymphocyte # 1.48 X10^3/ul (0.83-4.51); Lymphocyte % 30.6 % (19-41); Mean Corp Hgb Conc 33.4 g/dL (32-36); Mean Corpuscular Hgb 32.5 pg (27.0-32.0); Mean Corpuscular Volume 97.2 fL (80-94); Mean Platelet Vol. 9.1 fl (6.2-12.0); Monocyte# 0.73 X10^3/uL; Monocyte% 15.1 % (0-10); NRBC Flagged by Analyzer 0 % (0-5); Neutrophil # 2.53 X10^3/uL (2.7-7.7); Neutrophil % 52.3 % (47-70); Platelet Count 233 K/mm3 (150-450); RBC Distribution Width CV 13.2 % (11.6-14.6); RBC Distribution Width SD 47.4 fl (35.1-43.9); Red Blood Count 4.25 M/mm3 (4.6-6.2); White Blood Count 4.8 K/mm3 (4.4-11.0)
[2021-09-28 06:53] LABS: Troponin-I HS 16 pg/mL (3.0-78.0)
[2021-09-28 07:04] LABS: ALB/GLOB Ratio 0.7 RATIO (0.9-2.4); AST(SGOT) 29 U/L (15-37); Alanine Aminotransfer ALT/SGPT 28 U/L (16-61); Albumin, Serum 3.2 g/dL (3.2-5.0); Alkaline Phosphatase 69 U/L (45-117); Anion Gap 8 (5-15); BUN 8 mg/dL (7-18); BUN/Creat Ratio 8.7 RATIO (10-20); Calcium,Total 8.9 mg/dL (8.5-10.1); Chloride 100 mmol/L (98-107); Cholesterol 136 mg/dL (200); Creatinine, Serum 0.92 mg/dL (0.70-1.30); EST Glomerular Filtration Rate 95 mL/min (>60); Est Glom Filt Rate - Afr Amer 115 mL/min (>60); Estimated Creatinine Clearance 109.13 ml/min; Globulin 4.7 g/dL (2.2-4.2); Glucose 94 mg/dL (74-106); High Density Lipoprotein 63 mg/dL; Magnesium 2.3 mg/dL (1.6-2.6); Phosphorus 3.8 mg/dL (2.5-4.9); Potassium 3.7 mmol/L (3.5-5.1); Protein, Total 7.9 g/dL (6.4-8.2); Sodium Level 136 mmol/L (136-145); Triglycerides 80 mg/dL; Very Low Density Lipoprotein 16 mg/dL (5-40)
[2021-09-28] MEDS: Sertraline 100 MG Tablet PO (08:52)
[2021-09-28] MEDS: Folic Acid 1 MG Tablet PO (08:52)
[2021-09-28] MEDS: Enoxaparin 40 MG/0.4 ML Syringe SC (08:53)
[2021-09-28] MEDS: cloNIDine HCl 0.2 MG Tablet PO (08:53)
[2021-09-28] MEDS: Aspirin E.C. 81 MG Tablet PO (08:53)
[2021-09-28] MEDS: Thiamine Hydrochloride 100 MG Tablet PO (08:53)
--- NOTE | 2021-09-28 09:48 | CASEMGMT ---
Pt states does not want ETOH detox at [facility] at this time. Pt states is already connected with [facility] in [facility] and plans to make OP appt with them at discharge. Pt states his has contact info and plans to make pt appt. Pt states does not want to speak with 180 at this time. Eder DIMAS and Dr. Casiano updated, voice understanding. Pt's troponins are negative and plan would be for OP ST after pt out of COVID quarantine. Pt is on room air and voices no further questions/concerns/needs. Benjamin DIMAS CM
--- NOTE | 2021-09-28 09:58 | PCM.DC ---
Discharge Instructions Diet Discharge Diet: 2000 mg Sodium Diet Activity Discharge Activity: May Not Drive Weight Bearing Status: Weight bearing as tolerated Dressing / Incision Call your doctor if you observe: Fever of 101 or Higher, Coldness, Increased Pain, Numbness or Tingling, Change in Color, Inability to urinate, Inability to have a bowel movement, Shortness of breath, Dizziness, Fainting spells, Swelling in the ankles, Chest pain, Prolonged hiccupping, Increased palpitations (irregular heartbeat), Calf discomfort and Uncontrolled pain Follow Up Care Test Results: Test results from this visit will be discussed in further detail at your follow-up appointment, if applicable. Discharge Plan Admission Admit Date/Time: 09/27/21 23:07 Primary Reason for Your Visit: Attending Provider: Keyur Casiano Instructions Additional Instructions / Restrictions: Self quarantine for 2 weeks from 09/27/2021 Discharge Orders/Prescriptions Prescriptions: Continued sertraline 100 mg Tablet 100 mg PO DAILY RF: 0 buprenorphine-naloxone 8-2 mg Tablet, Sublingual 1 tab SUBLINGUAL BID RF: 0 clonidine HCl 0.2 mg Tablet 0.2 mg PO BID Qty: 0 RF: 0 Referrals / Follow Up: EDSON FERNANDES [Other] (Follow-up in 1 week for chest pain. Might need stress test after quarantine is completed) Disposition Disposition (needs filled in before D/C Order can be placed): Home, Self Care
--- NOTE | 2021-09-28 12:02 | DS.PCM_ITS ---
Providers Date of Admission: 09/27/21 Primary Care Physician: EDSON FERNANDES Reason For Visit: CHEST PAIN Diagnosis Discharge Diagnosis (1) Chest pain: Status: Acute Code(s): R07.9 - Chest pain, unspecified (2) COVID-19 virus infection: Status: Acute Code(s): U07.1 - COVID-19 Medications at Discharge Home Medications buprenorphine-naloxone 1 tab SUBLINGUAL BID 07/14/21 sertraline 100 mg PO DAILY 07/14/21 clonidine HCl 0.2 mg PO BID #0 tab 09/28/21 Hospital Course Summary of Care Provided Hospital Course: , HDL 63.This 46-year-old gentleman admitted with atypical chest pain. Patient has no associated symptoms of shortness of breath, diaphoresis, nausea, vomiting, PND or exertional dyspnea. Patient was admitted in PCU and serial troponin enzymes negative. Furthermore patient had 2D echo and reported EF 55%, mild concentric LVH, no RWMA. Patient recommended further stress test once out of Covid isolation. Fasting profile within normal limit, LDL 57, HDL 63. Acute coronary syndrome ruled out Patient also had COVID-19 infection. He had 1 dose of Pfizer vaccine. Recommended to complete vaccination once out of isolation. CTA chest did not show PE or acute dissection. Patient pulse ox 96% on room air. Recommended 2 weeks of isolation from positive test done 10/11/2021. Patient also has active alcohol use, 6 beers daily with history of chronic alcohol use and dependence. Patient had opioid use in the past and is on Subutex at home. Patient does not want phenobarbitone or other alcohol detoxification/medical status and treatment. He wants to go home. Other comorbidities include chronic hepatitis C, anxiety and depression, chronic smoking/tobacco use dependence. Discharge medication reconciliation done. Discharge follow-up instructions completed. Discharge process discussed with the patient and all questions were answered to patient's satisfaction. Total time spent, exact 35 minutes on discharge meds reconciliation, examination, coordination of care with nurses and ancillary staff, review of imaging and blood test and discussion with the patient on follow-up instructions Physical Exam Narrative Seen and examined Patient was admitted directly from [place] [facility] with midsternal chest pain. Serial troponins were followed and found to be negative. Patient also has chronic alcohol use and dependence with history of opioid use and dependence in the past and is on Subutex for that. He quit opioid use about 3 years ago. Currently drinks alcohol about 6 beers daily. Patient also had Covid rapid test positive. Had 1 dose of Pfizer vaccine in May. Serial troponins are negative. Patient does not want to stay for alcohol detoxification therapy but wants to go home. 2D echo was done. General: Alert, Oriented x3, Cooperative HEENT: Atraumatic, PERRLA, EOMI, Normocephalic Oral: No Gingival or Mucosal Lesions/ Ulcerations Neck: Supple, No JVD, Negative Carotid Bruits Lungs: Air entry diminished in bilateral lung bases. No crepitation/rhonchi Cardiovascular: Sinus rhythm rhythm, Normal S1, Normal S2, No murmurs Abdomen: Bowel Sounds Present, Soft, Non Tender, Non-Distended : No renal angle tenderness. No suprapubic tenderness. Extremities: No edema, Capillary Refill Less than 3 Seconds Skin: No rashes, No breakdown Musculoskeletal: No Tenderness to Palpation of Joints or Extremities Neurological: Cranial nerves II-XII grossly intact, DTR 2+/4 and Symmetrical, Neuro grossly intact Psych/Mental Status: Flat affect. Weight / BMI Weight Weight: 241 lb 2.971 oz Body Mass Index (BMI) 33.6 ABG / Lab / Microbiology Data Result Diagrams: 09/28/21 05:55 09/28/21 05:55 Laboratory: Laboratory Results - last 24 hr 09/27/21 23:40: Troponin I High Sens 14 09/28/21 02:20: Troponin I High Sens 14 09/28/21 05:55: WBC 4.8, RBC 4.25 L, Hgb 13.8, Hct 41.3, MCV 97.2 H, MCH 32.5 H, MCHC 33.4, RDW Std Deviation 47.4 H, RDW Coeff of Richa 13.2, Plt Count 233, MPV 9.1, Immature Gran % (Auto) 0.800, Neut % (Auto) 52.3, Lymph % (Auto) 30.6, [place] % (Auto) 15.1 H, Eos % (Auto) 0.4, Baso % (Auto) 0.8, Absolute Neuts (auto) 2.5, Absolute Lymphs (auto) 1.48, Nucleated RBC % 0 09/28/21 05:55: Sodium 136, Potassium 3.7, Chloride 100, Carbon Dioxide 28.0, A nion Gap 8, BUN 8, Creatinine 0.92, Estim Creat Clear Calc 109.13, Est GFR (MDRD) Af Amer 115, Est GFR (MDRD) Non-Af 95, BUN/Creatinine Ratio 8.7 L, Glucose 94, Calcium 8.9, Phosphorus 3.8, Magnesium 2.3, Total Bilirubin 0.20, AST 29, ALT 28, Alkaline Phosphatase 69, Total Protein 7.9, Albumin 3.2, Globulin 4.7 H, Albumin/Globulin Ratio 0.7 L, Triglycerides 80, Cholesterol 136, LDL Cholesterol 57, VLDL Cholesterol 16, HDL Cholesterol 63 09/28/21 05:55: Troponin I High Sens 16 Radiography Diagnostic Testing: Radiology Impression Echocardiogram 09/27/21 23:07 Interpretation Summary Normal LV size. Left ventricular systolic function is normal. The estimated ejection fraction is 55 %. Mild concentric left ventricular hypertrophy. Ordering Physician: Melba Verduzco Performed By: Shantel Saab, MADDISON, RVT D/C Instructions Discharge Diet: 2000 mg Sodium Diet Weight Bearing Status: Weight bearing as tolerated Call your doctor if you observe: Fever of 101 or Higher, Coldness, Increased Pain, Numbness or Tingling, Change in Color, Inability to urinate, Inability to have a bowel movement, Shortness of breath, Dizziness, Fainting spells, Swelling in the ankles, Chest pain, Prolonged hiccupping, Increased palpitations (irregular heartbeat), Calf discomfort and Uncontrolled pain Meaningful Use Info Meaningful Use Diagnoses (Choose all that apply): None applicable Discharge Plan Admission Admit Date/Time: 09/27/21 23:07 Primary Reason for Your Visit: Attending Provider: Keyur Casiano Instructions Additional Instructions / Restrictions: Self quarantine for 2 weeks from 09/27/2021 Discharge Orders/Prescriptions Prescriptions: Continued sertraline 100 mg Tablet 100 mg PO DAILY RF: 0 buprenorphine-naloxone 8-2 mg Tablet, Sublingual 1 tab SUBLINGUAL BID RF: 0 clonidine HCl 0.2 mg Tablet 0.2 mg PO BID Qty: 0 RF: 0 Referrals / Follow Up: EDSON FERNANDES [Other] (Follow-up in 1 week for chest pain. Might need stress test after quarantine is completed) Disposition Disposition (needs filled in before D/C Order can be placed): Home, Self Care Charges/Coding Visit Charges OBSV E&M: 20475 Observation care discharge
== END 2021-09-28 12:00 | disposition home or self-care (01) ==
PROVIDERS: Admitting Provider Internal Medicine; Visit Provider Internal Medicine
DX: U07.1 COVID-19 (principal); E87.1 Hypo-osmolality and hyponatremia; F10.20 Alcohol dependence, uncomplicated; I10 Essential (primary) hypertension; F41.9 Anxiety disorder, unspecified; F11.21 Opioid dependence, in remission; B18.2 Chronic viral hepatitis C; F32.A Depression, unspecified; Z79.899 Other long term (current) drug therapy
CPT/HCPCS: 36415; 80053; 80061; 83735; 84100; 84484; 85025; 93005; 93306; 96372; 96374; 99218; 99251; 99406; A4216; G0378; G0379; G0463

== ENCOUNTER 2022-05-22 18:11 | Inpatient (IN) | payer MEDICAID, SELFPAY ==
[2022-05-22] VITALS (7 sets, daily range): BP systolic 144–182; BP diastolic 99–129; PULSE 80–122; RESP 13–25; TEMP 35.9–37.1; O2SAT 94–99; BMI 35.2; BMI 34.2
--- NOTE | 2022-05-22 18:24 | CM.ED ---
MILI Note SW met with patient. He reports he is at the hospital for detox. Patient is familiar with the [facility] program and rules as he has been in the program 2 times in the past per chart. Patient reports drinking 1/5th of alcohol a day and last drink was yesterday. No current AOD treatment or linkage. Patient prefers to be called Danny. SW reviewed rules that include no outside food, no visitors, belongings locked and no phones and patient verbalized understanding. MILI called Treatment Navigator and spoke to Lovely. Advised of patient's desire for detox and provided Lovely with patient's demographics. Plan: [facility] admission. Breann KEVIN
--- NOTE | 2022-05-22 18:34 | EKG12_ITS ---
Test Reason : DYSRHYTHMIA Blood Pressure : / mmHG Vent. Rate : 098 BPM Atrial Rate : 098 BPM P-R Int : 152 ms QRS Dur : 106 ms QT Int : 362 ms P-R-T Axes : 042 -24 018 degrees QTc Int : 462 ms Sinus rhythm with occasional Premature ventricular complexes Poor R wave progression Confirmed by KIKA HERNANDEZ, MAYDA ([id number]), brands editor KLAUS COX ([id number]) on 05/24/2022 11:21:38 AM Referred By: DIEGO Confirmed By:MAYDA ANAND MD
[2022-05-22 18:45] LABS: Absolute Lymphocyte Count 3.41 X10^3/uL (0.83-4.51); Absolute Neutrophil Count 8.1 X10^3/uL (2.0-7.7); Basophil# 0.08 X10^3/uL; Basophil% 0.6 % (0-1); Eosinophil# 0.14 X10^3/uL; Eosinophils% 1.1 % (0-5); Hematocrit 45.1 % (40-54); Hemoglobin 15.7 g/dL (13.0-16.5); Lymphocyte # 3.41 X10^3/ul (0.83-4.51); Lymphocyte % 26.2 % (19-41); Mean Corp Hgb Conc 34.8 g/dL (32-36); Mean Corpuscular Hgb 33.4 pg (27.0-32.0); Mean Platelet Vol. 8.7 fl (6.2-12.0); Monocyte# 1.22 X10^3/uL; Monocyte% 9.4 % (0-10); NRBC Flagged by Analyzer 0 % (0-5); Neutrophil # 8.12 X10^3/uL (2.7-7.7); Neutrophil % 62.2 % (47-70); Platelet Count 326 K/mm3 (150-450); RBC Distribution Width CV 12.8 % (11.6-14.6); RBC Distribution Width SD 45.4 fl (35.1-43.9)
[2022-05-22] MEDS: LORazepam 2 MG/ML Syringe IV (18:55)
[2022-05-22 19:00] LABS: ALB/GLOB Ratio 0.8 RATIO (0.9-2.4); AST(SGOT) 56 U/L (15-37); Alanine Aminotransfer ALT/SGPT 37 U/L (16-61); Albumin, Serum 3.7 g/dL (3.2-5.0); Alkaline Phosphatase 92 U/L (45-117); Anion Gap 7 (5-15); BUN 15 mg/dL (7-18); BUN/Creat Ratio 15.9 RATIO (10-20); Calcium,Total 8.6 mg/dL (8.5-10.1); Chloride 104 mmol/L (98-107); Creatinine, Serum 0.94 mg/dL (0.70-1.30); EST Glomerular Filtration Rate 92 mL/min (>60); Est Glom Filt Rate - Afr Amer 111 mL/min (>60); Estimated Creatinine Clearance 102.47 ml/min; Globulin 4.5 g/dL (2.2-4.2); Glucose 110 mg/dL (74-106); Potassium 3.4 mmol/L (3.5-5.1); Protein, Total 8.2 g/dL (6.4-8.2); Sodium Level 137 mmol/L (136-145)
[2022-05-22 19:01] LABS: Prothrombin Time (Protime)PT. 13.3 SECONDS (11.7-14.9)
--- NOTE | 2022-05-22 19:30 | EX.ED.SAOD ---
HPI History of Present Illness Chief Complaint: Substance Abuse Informant: patient Narrative Narrative: Patient is here for alcohol detox. He states he drinks 1/5 of Chris Mcdermott every day. If he does not drinks he gets shaky and sweaty. He denies seizures. He last drank approximately 24 hours ago. He feels sweaty. He has not had vomiting but he feels intermittent nausea but no nausea now. No hallucinations. Patient last went through detox approximately 1 year ago. Patient is also on Suboxone. He states he has not used opioids in 6 or 7 years. He only takes a Suboxone when he has cravings for opioids. [facility] Medical History Anxiety COVID-19 virus infection EtOH dependence Hepatitis C Heroin abuse Hypertension Home Medications buprenorphine 8 mg-naloxone 2 mg sublingual tablet 1 tab sublingual BID cravings 07/14/21 [History Last Taken 09/26/21] sertraline 100 mg tablet 100 mg PO DAILY depression/anxiety 07/14/21 [History Last Taken 09/26/21] clonidine HCl 0.2 mg tablet 0.2 mg PO BID blood pressure #0 tabs 09/28/21 [Rx Last Taken 09/26/21] Allergy/AdvReac Type Severity Reaction Status Date / Time No Known Allergies Allergy Verified 05/22/22 18:13 Family History Other Addiction Social History Smoking Status: Heavy Smoker (>10/day) alcohol intake: former substance use type: former substance user Date of last use: Heroin and other details: Illicit benzodiazepines ROS ROS ED Constitutional Constitutional ED: Reports chills; Denies fever(s) or subjective Eyes Eyes: Denies blurry vision ENT ENT ED: Denies sore throat Cardiovascular Cardiovascular: Reports palpitations; Denies chest pain Respiratory/Chest Respiratory/Chest: Denies cough or dyspnea Gastrointestinal Gastrointestinal: Reports nausea; Denies abdominal pain or vomiting Musculoskeletal Musculoskeletal: Denies arthralgias Integumentary Denies rash Neurologic Neurologic: Denies headache(s) or weakness Psychiatric Psychiatric: Reports anxiety Endocrine Endocrinology: Denies polydipsia or polyuria Hematologic/Lymphatic Hematologic/Lymphatic: Denies easy bleeding or easy bruising Allergic/Immunologic Allergic/Immunologic ED: Denies urticaria EXAM Physical Exam Const Vital Signs: 05/22/22 18:12 05/22/22 18:29 05/22/22 18:36 Temperature 98.7 F 96.6 F L 96.6 F L Temperature Source Temporal Temporal Temporal Pulse Rate 122 H 107 H 98 Respiratory Rate 16 25 H 13 Blood Pressure 182/129 H 144/104 H 144/104 H Blood Pressure Mean 146 117 117 Pulse Ox 98 97 96 Oxygen Delivery Method Room Air Room Air Room Air 05/22/22 20:02 Temperature Temperature Source Pulse Rate 92 Respiratory Rate 17 Blood Pressure 150/99 H Blood Pressure Mean 116 Pulse Ox 94 Oxygen Delivery Method Room Air Positive well nourished and well developed Constitutional Narrative: Patient is a bit shaky and diaphoretic. But he is awake alert and appropriate and can give a reasonably good story. General Appearance ED: well developed; Negative for pallor HEENT Reports moist mucous membranes Eyes EOMs intact bilaterally Eyes Narrative: Possible mild nystagmus with horizontal motion Chest Wall inspection of chest normal Resp normal respiratory effort and clear to auscultation bilaterally Cardio regular rhythm Rate: tachycardic GI soft to palpation, non-tender and non-distended Back/Spine no CVA tenderness Neuro oriented x3 Sensorium / Orientation: oriented to person, oriented to place and oriented to time; Negative for confused, lethargic or stuporous Psych mental status grossly normal Skin Skin Narrative: Positive mild diaphoresis. He also has mild piloerection. General Skin Exam: Negative for pallor MDM MDM MDM Narrative Medical decision making narrative: Patient's blood work showed mild elevated white count which is a nonspecific finding. Electrolytes show no marked abnormalities. Minimal decreased potassium. LFTs show minimal elevation of AST. Alcohol is 206. INR is normal. Tox is negative. Patient's blood pressure and heart rate is down. He is visibly Col[place]. He is alert and oriented. He is requesting something to eat. He still would like detox. He will be admitted. Lab Data Attestation: I reviewed the patient's lab results. Labs: Laboratory Results - last 24 hr 05/22/22 05/22/22 05/22/22 18:31 18:31 18:31 WBC 13.0 H RBC 4.70 Hgb 15.7 Hct 45.1 MCV 96.0 H MCH 33.4 H MCHC 34.8 RDW Std Deviation 45.4 H RDW Coeff of Richa 12.8 Plt Count 326 MPV 8.7 Immature Gran % (Auto) 0.500 Neut % (Auto) 62.2 Lymph % (Auto) 26.2 [place] % (Auto) 9.4 Eos % (Auto) 1.1 Baso % (Auto) 0.6 Absolute Neuts (auto) 8.1 H Absolute Lymphs (auto) 3.41 Nucleated RBC % 0 PT INR Sodium 137 Potassium 3.4 L Chloride 104 Carbon Dioxide 26.0 Anion Gap 7 BUN 15 Creatinine 0.94 Estim Creat Clear Calc 102.47 Est GFR (MDRD) Af Amer 111 Est GFR (MDRD) Non-Af 92 BUN/Creatinine Ratio 15.9 Glucose 110 H Calcium 8.6 Total Bilirubin 0.20 AST 56 H ALT 37 Alkaline Phosphatase 92 Total Protein 8.2 Albumin 3.7 Globulin 4.5 H Albumin/Globulin Ratio 0.8 L Urine Opiates Screen Urine Methadone Screen Ur Barbiturates Screen Ur Phencyclidine Scrn Ur Amphetamines Screen MDMA (Ecstasy) Screen U Benzodiazepines Scrn Urine Cocaine Screen U Cannabinoids Screen Ur Drug Screen Comment Ethyl Alcohol 206.0 05/22/22 05/22/22 18:43 19:40 WBC RBC Hgb Hct MCV MCH MCHC RDW Std Deviation RDW Coeff of Richa Plt Count MPV Immature Gran % (Auto) Neut % (Auto) Lymph % (Auto) [place] % (Auto) Eos % (Auto) Baso % (Auto) Absolute Neuts (auto) Absolute Lymphs (auto) Nucleated RBC % PT 13.3 INR 1.0 Sodium Potassium Chloride Carbon Dioxide Anion Gap BUN Creatinine Estim Creat Clear Calc Est GFR (MDRD) Af Amer Est GFR (MDRD) Non-Af BUN/Creatinine Ratio Glucose Calcium Total Bilirubin AST ALT Alkaline Phosphatase Total Protein Albumin Globulin Albumin/Globulin Ratio Urine Opiates Screen NEGATIVE Urine Methadone Screen NEGATIVE Ur Barbiturates Screen NEGATIVE Ur Phencyclidine Scrn NEGATIVE Ur Amphetamines Screen NEGATIVE MDMA (Ecstasy) Screen NEGATIVE U Benzodiazepines Scrn NEGATIVE Urine Cocaine Screen NEGATIVE U Cannabinoids Screen NEGATIVE Ur Drug Screen Comment Ethyl Alcohol Discharge Plan Triage Chief Complaint: Substance Abuse ED Provider: Vinnie Jiménez Dx/Rx/DC Orders Clinical Impression: Alcoholism, Desire for detoxification Primary Care Provider: Care Physician,No Primary Disposition Disposition: Acute Care Hospital [facility]
[2022-05-22 20:10] LABS: Amphetamine Urine VISTA NEGATIVE (<1000 ng/mL); Barbiturate Urine VISTA NEGATIVE (< 200 ng/mL); Benzodiazepine Urine VISTA NEGATIVE (< 200 ng/mL); Cocaine Urine VISTA NEGATIVE (< 300 ng/mL); Ecstacy Urine VISTA NEGATIVE (< 500 ng/mL); Methadone Urine VISTA NEGATIVE (< 300 ng/mL); PCP Urine VISTA NEGATIVE (< 25 ng/mL); THC Urine VISTA NEGATIVE (< 50 ng/mL); Vista UDS pH Range 5
--- NOTE | 2022-05-22 20:51 | HP.PCM.HOS_ITS ---
[facility] - General General Date of Admission: 05/22/22 Date of Service: 05/22/22 Chief Complaint: Desire for detoxification HPI Narrative ALEC MOJICA, is a 47 M with a significant history of hypertension; anxiety disorder; tobacco abuse; alcoholism and remote history of heroin abuse who presents at the emergency department with help with alcohol detoxification. Reportedly he drinks about 1/5 of Chris Mcdermott every day. He has been drinking for about 5 to 6 years. Last time he drank was a day before presentation. He has a withdrawal symptoms of nausea, vomiting, shakiness and diaphoresis. At the emergency department he required Ativan. Heroin use: Last time he used heroin was about 6 years ago. Occasionally he takes Suboxone for craving. [facility] Medical History (Updated 05/22/22 @ 23:[address] Roman Calderon MD) Anxiety COVID-19 virus infection EtOH dependence Hepatitis C Heroin abuse Hypertension Home Medications buprenorphine 8 mg-naloxone 2 mg sublingual tablet 1 tab sublingual BID cravings 07/14/21 [History Last Taken 09/26/21] sertraline 100 mg tablet 100 mg PO DAILY depression/anxiety 07/14/21 [History Last Taken 09/26/21] clonidine HCl 0.2 mg tablet 0.2 mg PO BID blood pressure #0 tabs 09/28/21 [Rx Last Taken 09/26/21] Allergy/AdvReac Type Severity Reaction Status Date / Time No Known Allergies Allergy Verified 05/22/22 18:13 Family History Other Addiction Surgical History no surgical history no surgical history Social History Smoking Status: Heavy Smoker (>10/day) alcohol intake: former substance use type: former substance user Date of last use: Heroin and other details: Illicit benzodiazepines ROS ROS Narrative Pertinent positives and pertinent negatives as noted in HPI. All other systems were reviewed and are negative Vital Signs Vital Signs Vital Signs: 05/22/22 18:12 05/22/22 18:29 05/22/22 18:36 Temperature 98.7 F 96.6 F L 96.6 F L Temperature Source Temporal Temporal Temporal Pulse Rate 122 H 107 H 98 Respiratory Rate 16 25 H 13 Blood Pressure 182/129 H 144/104 H 144/104 H Blood Pressure Mean 146 117 117 Pulse Ox 98 97 96 Oxygen Delivery Method Room Air Room Air Room Air 05/22/22 20:02 Temperature Temperature Source Pulse Rate 92 Respiratory Rate 17 Blood Pressure 150/99 H Blood Pressure Mean 116 Pulse Ox 94 Oxygen Delivery Method Room Air Weight Weight: 111.13 kg Body Mass Index (BMI) 35.2 Physical Exam Narrative Physical exam: General: Well-nourished, well-developed. Head: Normocephalic, atraumatic, no tenderness Eyes: Vision is grossly intact. EOMI ENT, no trauma, moist mucous membranes, no rhinorrhea Neck: Nontender, full range of motion, no spinal tenderness, deformities, step- off CVS: Regular rate and rhythm. S1-S2 present. No murmur, gallop or rub. Respiratory : clear to auscultation bilaterally, chest wall nontender, no wheezing Abdomen: Soft, nontender, nondistended, normal bowel sounds, no masses : Deferred Back: Nontender, no CVA tenderness, no midline spinal tenderness, deformities, step-offs Extremities: Nontender full range of motion, no trauma Skin: Normal color, no trauma, abrasions Neuro: Hypo alert, oriented, cranial nerves II through XII grossly intact. Psychiatry: Normal mood. Normal affect. Not depressed. Not anxious. Results Lab / Micro Data Result Diagrams: 05/22/22 18:31 05/22/22 18:31 Labs: Laboratory Results - last 24 hr 05/22/22 18:31: WBC 13.0 H, RBC 4.70, Hgb 15.7, Hct 45.1, MCV 96.0 H, MCH 33.4 H , MCHC 34.8, RDW Std Deviation 45.4 H, RDW Coeff of Richa 12.8, Plt Count 326, MPV 8.7, Immature Gran % (Auto) 0.500, Neut % (Auto) 62.2, Lymph % (Auto) 26.2, [place] % (Auto) 9.4, Eos % (Auto) 1.1, Baso % (Auto) 0.6, Absolute Neuts (auto) 8.1 H, Absolute Lymphs (auto) 3.41, Nucleated RBC % 0 05/22/22 18:31: Sodium 137, Potassium 3.4 L, Chloride 104, Carbon Dioxide 26.0, Anion Gap 7, BUN 15, Creatinine 0.94, Estim Creat Clear Calc 102.47, Est GFR (MDRD) Af Amer 111, Est GFR (MDRD) Non-Af 92, BUN/Creatinine Ratio 15.9, Glucose 110 H, Calcium 8.6, Total Bilirubin 0.20, AST 56 H, ALT 37, Alkaline Phosphatase 92, Total Protein 8.2, Albumin 3.7, Globulin 4.5 H, Albumin/Globulin Ratio 0.8 L 05/22/22 18:31: Ethyl Alcohol 206.0 05/22/22 18:43: PT 13.3, INR 1.0 05/22/22 19:40: Urine Opiates Screen NEGATIVE, Urine Methadone Screen NEGATIVE, Ur Barbiturates Screen NEGATIVE, Ur Phencyclidine Scrn NEGATIVE, Ur Amphetamines Screen NEGATIVE, MDMA (Ecstasy) Screen NEGATIVE, U Benzodiazepines Scrn NEGATIVE, Urine Cocaine Screen NEGATIVE, U Cannabinoids Screen NEGATIVE, Ur Drug Screen Comment Assessment & Plan Assessment/Plan (1) Alcoholism: (2) Tobacco abuse: (3) Hypertension: (4) Desire for detoxification: PLAN: Plan Alcohol dependence and desire for detoxification Ethanol level on presentation was 206 Patient be started on phenobarbital and other adjunctive medications: Gabapentin as needed; dicyclomine as needed; Vistaril as needed; Imodium as needed; trazodone as needed; Zofran as needed; scheduled thiamine; and schedule folic acid. Monitor CIWA score Tobacco abuse Counseled Nicotine patch prescribed. Leukocytosis White count of 13. Likely reactive. Trend. Heroine abuse Last time he used heroine was about 6 years ago. On prn Suboxone; continued. Hypertension Blood pressure is not within goal Home clonidine continued. As needed hydralazine ordered. Trend blood pressure and adjust blood pressure medications. DVT prophylaxis Low risk Encourage to ambulate Charges/Coding Visit Charges Inpatient E&M: 60850 Init Hosp L3
[2022-05-22] MEDS: Ondansetron 8 MG Tablet PO (22:47)
[2022-05-22] MEDS: Phenobarbital 32.4 MG Tablet 64.8 MG PO (22:47)
[2022-05-22] MEDS: hydrOXYzine PAM 25 MG Capsule 50 MG PO (22:47)
[2022-05-22] MEDS: cloNIDine HCl 0.2 MG Tablet PO (22:49)
[2022-05-22] MEDS: CLARIFY ORDER NOTE (23:30)
[2022-05-23] VITALS (7 sets, daily range): BP systolic 110–190; BP diastolic 71–133; PULSE 61–78; RESP 18; TEMP 36.6–36.8; O2SAT 95–99
[2022-05-23] MEDS: Phenobarbital 32.4 MG Tablet 64.8 MG PO ×5 (03:06→17:51)
[2022-05-23] MEDS: Gabapentin 300 MG Capsule PO ×2 (05:01→13:31)
[2022-05-23 06:19] LABS: Anion Gap 6 (5-15); BUN 13 mg/dL (7-18); BUN/Creat Ratio 16.5 RATIO (10-20); Calcium,Total 8.6 mg/dL (8.5-10.1); Chloride 103 mmol/L (98-107); Creatinine, Serum 0.79 mg/dL (0.70-1.30); EST Glomerular Filtration Rate 113 mL/min (>60); Est Glom Filt Rate - Afr Amer 136 mL/min (>60); Estimated Creatinine Clearance 125.76 ml/min; Glucose 87 mg/dL (74-106); Potassium 3.7 mmol/L (3.5-5.1); Sodium Level 136 mmol/L (136-145)
--- NOTE | 2022-05-23 07:38 | PN.HOSP_ITS ---
Subjective Subjective Seen and examined. Patient complain of tremors, shakiness, sweating, severe anxiety and restlessness. No seizure. Denies hallucinations delusions or illusions. History of chronic alcohol use. Denies hematemesis melena or hematochezia. No ascites. Objective Data Objective Data Vital Signs: Vital Signs Temp Pulse Resp BP Pulse Ox O2 Del Method 98.3 F 78 18 159/92 H 95 Room Air 05/23/22 04:45 05/23/22 04:45 05/23/22 04:45 05/23/22 04:45 05/23/22 04:45 05/23/22 04:45 Oxygen Delivery Method Room Air Weight: 245 lb 5.992 oz Body Mass Index (BMI) 34.2 Intake & Output: Intake and Output for Last 24 Hours 05/21/22 05/22/22 05/23/22 23:59 23:59 23:59 Intake Total 500 / 500 700 / 700 Balance 500 / 500 700 / 700 Lab / Micro Data Result Diagrams: 05/22/22 18:31 05/23/22 05:06 Labs: Laboratory Results - last 24 hr 05/22/22 18:31: WBC 13.0 H, RBC 4.70, Hgb 15.7, Hct 45.1, MCV 96.0 H, MCH 33.4 H , MCHC 34.8, RDW Std Deviation 45.4 H, RDW Coeff of Richa 12.8, Plt Count 326, MPV 8.7, Immature Gran % (Auto) 0.500, Neut % (Auto) 62.2, Lymph % (Auto) 26.2, [place] % (Auto) 9.4, Eos % (Auto) 1.1, Baso % (Auto) 0.6, Absolute Neuts (auto) 8.1 H, Absolute Lymphs (auto) 3.41, Nucleated RBC % 0 05/22/22 18:31: Sodium 137, Potassium 3.4 L, Chloride 104, Carbon Dioxide 26.0, Anion Gap 7, BUN 15, Creatinine 0.94, Estim Creat Clear Calc 102.47, Est GFR (MDRD) Af Amer 111, Est GFR (MDRD) Non-Af 92, BUN/Creatinine Ratio 15.9, Glucose 110 H, Calcium 8.6, Total Bilirubin 0.20, AST 56 H, ALT 37, Alkaline Phosphatase 92, Total Protein 8.2, Albumin 3.7, Globulin 4.5 H, Albumin/Globulin Ratio 0.8 L 05/22/22 18:31: Ethyl Alcohol 206.0 05/22/22 18:43: PT 13.3, INR 1.0 05/22/22 19:40: Urine Opiates Screen NEGATIVE, Urine Methadone Screen NEGATIVE, Ur Barbiturates Screen NEGATIVE, Ur Phencyclidine Scrn NEGATIVE, Ur Amphetamines Screen NEGATIVE, MDMA (Ecstasy) Screen NEGATIVE, U Benzodiazepines Scrn NEGATIVE, Urine Cocaine Screen NEGATIVE, U Cannabinoids Screen NEGATIVE, Ur Drug Screen Comment 05/23/22 05:06: Sodium 136, Potassium 3.7, Chloride 103, Carbon Dioxide 27.0, Anion Gap 6, BUN 13, Creatinine 0.79, Estim Creat Clear Calc 125.76, Est GFR (MDRD) Af Amer 136, Est GFR (MDRD) Non-Af 113, BUN/Creatinine Ratio 16.5, Glucose 87, Calcium 8.6 Physical Exam Narrative Physical exam General: Mild drowsy last night. Currently awake. HEENT: Atraumatic, PERRLA, EOMI, Normocephalic Oral: No Gingival or Mucosal Lesions/ Ulcerations Neck: Supple, No JVD, Negative Carotid Bruits Lungs: Air entry diminished in bilateral lung bases. No crepitation/rhonchi Cardiovascular: Regular rate, Regular Rhythm, Normal S1, Normal S2, No murmurs Abdomen: Liver not enlarged. Bowel Sounds Present, Soft, Non Tender, Non- Distended : No renal angle tenderness. No suprapubic tenderness. Extremities: No edema, Capillary Refill Less than 3 Seconds Skin: No rashes, No breakdown Musculoskeletal: No Tenderness to Palpation of Joints or Extremities Neurological: Cranial nerves II-XII grossly intact, DTR 2+/4 and Symmetrical, Neuro grossly intact Psych/Mental Status: Anxious, restless Assessment & Plan Assessment/Plan (1) Alcoholism: (2) Tobacco abuse: (3) Hypertension: (4) Desire for detoxification: PLAN: Plan Alcohol intoxication with history of chronic alcohol use disorder, with dependence and tolerance: Patient drinks alcohol just before coming to ED. Usually drinks 1/5 bottle of Chris Mcdermott every day. Ethanol level on presentation was 206Patient be started on phenobarbital and other adjunctive medications as needed to control symptoms. Monitor CIWA score. Patient did not have seizure, delusion or illusion Patient is on scheduled thiamine; and folic acid. Monitor CIWA score Chronic cigarette smoking, nicotine dependence Counseled to quit smoking Nicotine patch prescribed. Leukocytosis White count of 13. Likely reactive. Trend. History of heroin use 6 years ago Last time he used heroine was about 6 years ago. On prn Suboxone; continued. Hypertension: Blood pressure is high probably due to alcohol withdrawal. Clonidine 0.3 mg twice daily. Most recent 151/113.. As needed hydralazine ordered. Trend blood pressure and adjust blood pressure medications. DVT prophylaxis Low risk Encourage to ambulate Charges/Coding Visit Charges Inpatient E&M: 75611 Subs Hosp L2
[2022-05-23] MEDS: Sertraline 100 MG Tablet PO (09:09)
[2022-05-23] MEDS: hydrOXYzine PAM 25 MG Capsule 50 MG PO ×3 (09:09→17:51)
[2022-05-23] MEDS: Ondansetron 8 MG Tablet PO ×2 (09:10→17:51)
[2022-05-23] MEDS: Folic Acid 1 MG Tablet PO (09:10)
[2022-05-23] MEDS: Thiamine Hydrochloride 100 MG Tablet PO (09:10)
[2022-05-23] MEDS: cloNIDine HCl 0.2 MG Tablet PO (09:10)
[2022-05-23] MEDS: cloNIDine HCl 0.1 MG Tablet PO (10:14)
[2022-05-23] MEDS: Topiramate 100 MG Tablet PO ×2 (13:31→20:53)
--- NOTE | 2022-05-23 15:06 | NURSING ---
clarified with patient, he would like to be on the directory. registration notified.
--- NOTE | 2022-05-23 15:45 | ADDICTION ---
This news writer met with PT to conduct ASAM, MSE, DUDIT assessments and to plan for d/c. All assessments completed and faxed to [facility]. PT reports that he would like outpatient treatment but would like to discuss his options tomorrow when he is feeling better. This news writer will meet with pt tomorrow to discuss d/c planning.
[2022-05-23] MEDS: hydrALAZINE 20 MG/ML Vial 10 MG IV (20:44)
[2022-05-23] MEDS: 0.9% Saline Lock 10 ML Syringe IV (20:45)
[2022-05-23] MEDS: Clonidine HCl 0.1 MG, Clonidine HCl 0.2 MG 0.3 MG PO (20:45)
[2022-05-23] MEDS: traZODone 100 MG Tablet PO (20:46)
[2022-05-23] MEDS: Dicyclomine 10 MG Capsule 20 MG PO (20:46)
[2022-05-24] MEDS: Phenobarbital 32.4 MG Tablet 64.8 MG PO ×3 (04:01→11:23)
[2022-05-24 04:44] VITALS: BP 131/95; PULSE 60; RESP 18; TEMP 36.6; O2SAT 97
[2022-05-24 10:00] VITALS: BP 140/89; PULSE 63; RESP 18; TEMP 36.6; O2SAT 98
[2022-05-24] MEDS: Folic Acid 1 MG Tablet PO (10:11)
[2022-05-24] MEDS: Sertraline 100 MG Tablet PO (10:11)
[2022-05-24] MEDS: Thiamine Hydrochloride 100 MG Tablet PO (10:11)
[2022-05-24] MEDS: Clonidine HCl 0.1 MG, Clonidine HCl 0.2 MG 0.3 MG PO (10:12)
[2022-05-24] MEDS: Topiramate 100 MG Tablet PO (10:21)
--- NOTE | 2022-05-24 11:37 | PCM.PN.HOSP ---
Subjective Subjective Patient blood pressure is better controlled. 110/71, 131/95, 140/89 Patient had good sleep last night. Symptoms are better controlled. Patient bad dream/nightmares last night. No hallucination. Objective Data Objective Data Vital Signs: Vital Signs Temp Pulse Resp BP Pulse Ox O2 Del Method 97.9 F 63 18 140/89 H 98 Room Air 05/24/22 10:00 05/24/22 10:00 05/24/22 10:00 05/24/22 10:00 05/24/22 10:00 05/24/22 10:00 Oxygen Delivery Method Room Air Weight: 245 lb 5.992 oz Body Mass Index (BMI) 34.2 Intake & Output: Intake and Output for Last 24 Hours 05/22/22 05/23/22 05/24/22 23:59 23:59 23:59 Intake Total 500 / 500 1500 / 1940 660 / 660 Balance 500 / 500 1500 / 1940 660 / 660 Lab / Micro Data Result Diagrams: 05/22/22 18:31 05/23/22 05:06 Physical Exam Narrative Physical exam General: Currently awake. Alert awake oriented x3. BMI 34.2 kg/m? HEENT: Atraumatic, PERRLA, EOMI, Normocephalic Oral: No Gingival or Mucosal Lesions/ Ulcerations Neck: Supple, No JVD, Negative Carotid Bruits Lungs: Air entry diminished in bilateral lung bases. No crepitation/rhonchi Cardiovascular: Regular rate, Regular Rhythm, Normal S1, Normal S2, No murmurs Abdomen: Liver not enlarged. Bowel Sounds Present, Soft, Non Tender, Non-Distended : No renal angle tenderness. No suprapubic tenderness. Extremities: No edema, Capillary Refill Less than 3 Seconds Skin: No rashes, No breakdown Musculoskeletal: No Tenderness to Palpation of Joints or Extremities Neurological: Cranial nerves II-XII grossly intact, DTR 2+/4 and Symmetrical, Neuro grossly intact Psych/Mental Status: Flat affect. Assessment & Plan Assessment/Plan (1) Alcoholism: (2) Tobacco abuse: (3) Hypertension: (4) Desire for detoxification: PLAN: Plan This 47-year-old gentleman admitted with alcohol intoxication with high risk for alcohol withdrawal. 1. Alcohol intoxication and then alcohol withdrawal syndrome with history of chronic alcohol use disorder, with dependence and tolerance: Patient drinks alcohol just before coming to ED. Usually drinks 1/5 bottle of Chris Mcdermott every day. Ethanol level on presentation was 206Patient be started on phenobarbital and other adjunctive medications as needed to control symptoms. Monitor CIWA score. Patient did not have seizure, delusion or illusion Patient is on scheduled thiamine; and folic acid. Monitor CIWA score Chronic cigarette smoking, nicotine dependence Counseled to quit smoking Nicotine patch prescribed. Leukocytosis White count of 13. Likely reactive. Trend. History of heroin use 6 years ago Last time he used heroine was about 6 years ago. On prn Suboxone; continued. Hypertension: Blood pressure was high in systolic 170s. Blood pressure is much better controlled on clonidine. As needed hydralazine ordered. Monitor BP and titrate medications accordingly DVT prophylaxis Low risk Encourage to ambulate Active Medications Clonidine 0.1 mg/ Clonidine 0. (2 mg) 0.3 mg PO BID [facility] Last Admin: 05/24/22 10:12 Dose: 0.3 mg Dicyclomine HCl (Dicyclomine 10 Mg Capsule) 20 mg PO Q6H PRN PRN PRN Reason: abdominal discomfort Last Admin: 05/23/22 20:46 Dose: 20 mg Folic Acid (Folic Acid 1 Mg Tablet) 1 mg PO DAILY@0800 [facility] Last Admin: 05/24/22 10:11 Dose: 1 mg Gabapentin (Gabapentin 300 Mg Capsule) 300 mg PO Q8H PRN PRN PRN Reason: moderate to severe anxiety Last Admin: 05/23/22 13:31 Dose: 300 mg Hydralazine HCl (Hydralazine 20 Mg/Ml Vial) 10 mg IV Q4H PRN PRN PRN Reason: SBP more than 180 mmHg Last Admin: 05/23/22 20:44 Dose: 10 mg Hydroxyzine Pamoate (Hydroxyzine Tish 25 Mg Capsule) 50 mg PO Q4H PRN PRN PRN Reason: mild anxiety Last Admin: 05/23/22 17:51 Dose: 50 mg Loperamide HCl (Loperamide 2 Mg Capsule) 2 mg PO Q4H PRN PRN PRN Reason: LOOSE STOOLS Metoprolol Tartrate (Metoprolol Tartrate 5 Mg/5 Ml Vial) 5 mg IV Q4H PRN PRN PRN Reason: HR 130/m Nicotine (Nicotine 21 Mg Patch) 21 mg TD DAILY [facility] Last Admin: 05/24/22 10:10 Dose: 21 mg Ondansetron HCl (Ondansetron 8 Mg Tablet) 8 mg PO Q8H PRN PRN PRN Reason: NAUSEA Last Admin: 05/23/22 17:51 Dose: 8 mg Phenobarbital (Phenobarbital 32.4 Mg Tablet) 64.8 mg PO Q4H [facility]; Taper Stop: 05/27/22 06:44 Last Admin: 05/24/22 11:23 Dose: 64.8 mg Sertraline HCl (Sertraline 100 Mg Tablet) 100 mg PO DAILY [facility] Last Admin: 05/24/22 10:11 Dose: 100 mg Sodium Chloride (0.9% Saline Lock 10 Ml Syringe) 10 - 40 ml IV UD PRN PRN Reason: SALINE FLUSH Last Admin: 05/23/22 20:45 Dose: 10 ml Thiamine HCl (Thiamine Hydrochloride 100 Mg Tablet) 100 mg PO DAILYCM [facility] Last Admin: 05/24/22 10:11 Dose: 100 mg Topiramate (Topiramate 100 Mg Tablet) 100 mg PO BID [facility] Last Admin: 05/24/22 10:21 Dose: 100 mg Trazodone HCl (Trazodone 50 Mg Tablet) 50 mg PO QHS PRN PRN Reason: INSOMNIA Charges/Coding Visit Charges Inpatient E&M: 94421 Subs Hosp L2
--- NOTE | 2022-05-24 12:00 | ADDICTION ---
Pt has decided to leave AMA. Pt's was notified.
--- NOTE | 2022-05-24 12:21 | NURSING ---
pt left ama after 180 counselor (following rules) told him he could not have his phone to call his phenobarb dose that was opened, will be wasted and not given pt clearly informed that due to the meds he recieved here, he could not drive himself home-pt voices understanding ambulatory d/c after signing AMA papers
--- NOTE | 2022-05-24 14:49 | DS.PCM_ITS ---
Providers Date of Admission: 05/22/22 Date of Discharge: 05/24/22 Primary Care Physician: No Primary Care Phys Reason For Visit: DESIRE FOR DETOXIFICATION Diagnosis Discharge Diagnosis (1) Alcoholism: Status: Acute Code(s): F10.20 - Alcohol dependence, uncomplicated (2) Tobacco abuse: Status: Acute Code(s): Z72.0 - Tobacco use (3) Hypertension: Status: Chronic Code(s): I10 - Essential (primary) hypertension (4) Desire for detoxification: Status: Acute Plan This 47-year-old gentleman admitted with alcohol intoxication with high risk for alcohol withdrawal. 1. Alcohol intoxication and then alcohol withdrawal syndrome with history of chronic alcohol use disorder, with dependence and tolerance: Patient drinks alcohol just before coming to ED. Usually drinks 1/5 bottle of Chris Mcdermott every day. Ethanol level on presentation was 206Patient be started on phenobarbital and other adjunctive medications as needed to control symptoms. Monitor CIWA score. Patient did not have seizure, delusion or illusion Patient is on scheduled thiamine; and folic acid. Monitor CIWA score Chronic cigarette smoking, nicotine dependence Counseled to quit smoking Nicotine patch prescribed. Leukocytosis White count of 13. Likely reactive. Trend. History of heroin use 6 years ago Last time he used heroine was about 6 years ago. On prn Suboxone; continued. Hypertension: Blood pressure was high in systolic 170s. Blood pressure is much better controlled on clonidine. As needed hydralazine ordered. Monitor BP and titrate medications accordingly DVT prophylaxis Low risk Encourage to ambulate Active Medications Clonidine 0.1 mg/ Clonidine 0. (2 mg) 0.3 mg PO BID [facility] Last Admin: 05/24/22 10:12 Dose: 0.3 mg Dicyclomine HCl (Dicyclomine 10 Mg Capsule) 20 mg PO Q6H PRN PRN PRN Reason: abdominal discomfort Last Admin: 05/23/22 20:46 Dose: 20 mg Folic Acid (Folic Acid 1 Mg Tablet) 1 mg PO DAILY@0800 [facility] Last Admin: 05/24/22 10:11 Dose: 1 mg Gabapentin (Gabapentin 300 Mg Capsule) 300 mg PO Q8H PRN PRN PRN Reason: moderate to severe anxiety Last Admin: 05/23/22 13:31 Dose: 300 mg Hydralazine HCl (Hydralazine 20 Mg/Ml Vial) 10 mg IV Q4H PRN PRN PRN Reason: SBP more than 180 mmHg Last Admin: 05/23/22 20:44 Dose: 10 mg Hydroxyzine Pamoate (Hydroxyzine Tish 25 Mg Capsule) 50 mg PO Q4H PRN PRN PRN Reason: mild anxiety Last Admin: 05/23/22 17:51 Dose: 50 mg Loperamide HCl (Loperamide 2 Mg Capsule) 2 mg PO Q4H PRN PRN PRN Reason: LOOSE STOOLS Metoprolol Tartrate (Metoprolol Tartrate 5 Mg/5 Ml Vial) 5 mg IV Q4H PRN PRN PRN Reason: HR 130/m Nicotine (Nicotine 21 Mg Patch) 21 mg TD DAILY [facility] Last Admin: 05/24/22 10:10 Dose: 21 mg Ondansetron HCl (Ondansetron 8 Mg Tablet) 8 mg PO Q8H PRN PRN PRN Reason: NAUSEA Last Admin: 05/23/22 17:51 Dose: 8 mg Phenobarbital (Phenobarbital 32.4 Mg Tablet) 64.8 mg PO Q4H [facility]; Taper Stop: 05/27/22 06:44 Last Admin: 05/24/22 11:23 Dose: 64.8 mg Sertraline HCl (Sertraline 100 Mg Tablet) 100 mg PO DAILY [facility] Last Admin: 05/24/22 10:11 Dose: 100 mg Sodium Chloride (0.9% Saline Lock 10 Ml Syringe) 10 - 40 ml IV UD PRN PRN Reason: SALINE FLUSH Last Admin: 05/23/22 20:45 Dose: 10 ml Thiamine HCl (Thiamine Hydrochloride 100 Mg Tablet) 100 mg PO DAILYCM [facility] Last Admin: 05/24/22 10:11 Dose: 100 mg Topiramate (Topiramate 100 Mg Tablet) 100 mg PO BID [facility] Last Admin: 05/24/22 10:21 Dose: 100 mg Trazodone HCl (Trazodone 50 Mg Tablet) 50 mg PO QHS PRN PRN Reason: INSOMNIA Medications at Discharge Home Medications buprenorphine 8 mg-naloxone 2 mg sublingual tablet 1 tab sublingual PRN PRN Withdrawal Symptoms 07/14/21 sertraline 100 mg tablet 100 mg PO DAILY depression/anxiety 07/14/21 clonidine HCl 0.2 mg tablet 0.2 mg PO BID blood pressure #0 tabs 09/28/21 topiramate 100 mg tablet 100 mg PO BID bp 05/23/22 Hospital Course Summary of Care Provided Hospital Course: This 47-year-old gentleman admitted with alcohol intoxication with high risk for alcohol withdrawal. 1.? Alcohol intoxication and then alcohol withdrawal syndrome with history of chronic alcohol use disorder, with dependence and tolerance: Patient drinks alcohol just before coming to ED.? Usually drinks 1/5 bottle of Chris Mcdermott every day. Ethanol level on presentation was 206Patient be started on phenobarbital and other adjunctive medications as needed to control symptoms.? Monitor CIWA score.? Patient did not have seizure, delusion or illusion Patient is on scheduled thiamine; and? folic acid. Last CIWA score was 3. Chronic cigarette smoking, nicotine dependence Counseled to quit smoking Nicotine patch prescribed. Leukocytosis White count of 13.? Likely reactive.? History of heroin use 6 years ago Last time he used heroine was about 6 years ago. On prn Suboxone; continued. Hypertension: Blood pressure was high in systolic 170s. Blood pressure is much better controlled on clonidine. As needed hydralazine ordered. Monitor BP and titrate medications accordingly DVT prophylaxis Low risk Encourage to ambulate Patient signed AMA. Patient was advised to stay for 1 more day to complete her treatment but he did not agree and signed the AMA paper. Advised follow-up outpatient alcohol rehab program. Physical Exam Narrative Patient was seen and examined today on 05/24/2022. Please see progress note of the same date. Weight / BMI Weight Weight: 245 lb 5.992 oz Body Mass Index (BMI) 34.2 ABG / Lab / Microbiology Data Result Diagrams: 05/22/22 18:31 05/23/22 05:06 Meaningful Use Info Meaningful Use Diagnoses (Choose all that apply): None applicable Discharge Plan Admission Admit Date/Time: 05/22/22 20:44 Attending Provider: Keyur Casiano Primary Care Provider: Maddi Mccloud Primary Consulting Providers: Roman Calderon Discharge Orders/Prescriptions Prescriptions: No Action sertraline 100 mg Tablet 100 mg PO DAILY buprenorphine-naloxone 8-2 mg Tablet, Sublingual 1 tab SUBLINGUAL PRN PRN (Reason: Withdrawal Symptoms) clonidine HCl 0.2 mg Tablet 0.2 mg PO BID Qty: 0 0RF Rx Instructions: Hold for heart less than 60 or systolic blood pressure less than 120 mmHg. topiramate 100 mg tablet 100 mg PO BID Referrals / Follow Up: Care Physician,Maddi Primary [Primary Care Provider] - [facility] Doctor,Out of [Non-Staff] - Disposition Disposition (needs filled in before D/C Order can be placed): Against Medical Advice Charges/Coding Addendum Addendum: Please cancel the billing charge of the progress note of 05/24/2022. Visit Charges Inpatient E&M: 97654 Disch Hosp
== END 2022-05-24 12:00 | disposition left against medical advice (07) | DRG 770 ==
LOC: ED 19:17 → MS3 21:22
PROVIDERS: Admitting Provider Hospitalist; Emergency Provider Emergency Medicine; Visit Provider Internal Medicine
DX: F10.239 Alcohol dependence with withdrawal, unspecified (principal); F11.90 Opioid use, unspecified, uncomplicated; I10 Essential (primary) hypertension; F41.9 Anxiety disorder, unspecified; F17.210 Nicotine dependence, cigarettes, uncomplicated; Z86.16 Personal history of COVID-19; Y90.7 Blood alcohol level of 200-239 mg/100 ml
CPT/HCPCS: 36415; 80048; 80053; 80307; 82077; 85025; 85610; 93005; 99285; 99406; J7040; A4216

== ENCOUNTER 2023-05-31 22:52 | Inpatient (IN) | payer MEDICAID, SELFPAY ==
[2023-05-31 22:53] VITALS: BP 207/186; PULSE 144; RESP 20; TEMP 36.6; O2SAT 100
[2023-05-31 22:59] VITALS: BMI 36.2
--- NOTE | 2023-05-31 23:24 | EX.ED.SAOD ---
HPI History of Present Illness Chief Complaint: Substance Abuse Informant: patient Narrative Narrative: Patient seeking detox from alcohol. Over the last 2 to 3 days, he has tried to stop drinking on his own, but he has had some withdrawal symptoms including nausea and vomiting and anxiety. He did drink today because of this, but is seeking detox. He states that he has been in contact with [facility], a local outpatient rehab program, and they are ready to accept him after the weekend and he is advised to come sign him into detox tonight which is his purpose here. He is not suicidal. Denies any other recent illnesses. He states he was in [facility] 6 or 7 months ago, but his tqijdi-ys-[id number] who was very close to him and so he had to leave at that time. [facility] Medical History Alcoholism Anxiety COVID-19 virus infection Desire for detoxification EtOH dependence Hepatitis C Heroin abuse Hypertension Tobacco abuse Home Medications buprenorphine 8 mg-naloxone 2 mg sublingual tablet 1 tab sublingual PRN PRN Withdrawal Symptoms 07/14/21 [History Last Taken 09/26/21] clonidine HCl 0.2 mg tablet 0.2 mg PO BID blood pressure #0 tabs 09/28/21 [Rx Last Taken 09/26/21] topiramate 100 mg tablet 100 mg PO BID bp 05/23/22 [History Last Taken Unknown] Allergy/AdvReac Type Severity Reaction Status Date / Time No Known Allergies Allergy Verified 05/31/23 22:53 Family History Other Addiction Social History Smoking Status: Heavy Smoker (>10/day) alcohol intake: former substance use type: former substance user Date of last use: Heroin and other details: Illicit benzodiazepines ROS ROS ED Constitutional Constitutional ED: Denies chills or fever(s) Eyes Eyes: Denies change in vision or diplopia ENT ENT ED: Denies rhinorrhea or sore throat Cardiovascular Cardiovascular: Denies chest pain or palpitations Respiratory/Chest Respiratory/Chest: Denies cough or dyspnea Gastrointestinal Gastrointestinal: Denies abdominal pain, diarrhea, nausea or vomiting Genitourinary Genitourinary ED: Denies dysuria or hematuria Musculoskeletal Musculoskeletal: Denies back pain or neck pain Integumentary Denies abscess or rash Neurologic Neurologic: Denies headache(s), paresthesias or weakness Psychiatric Psychiatric: Denies anxiety or suicidal thoughts EXAM Physical Exam Const Vital Signs: 05/31/23 22:53 06/01/23 01:13 06/01/23 02:25 Temperature 97.8 F 97.4 F L Temperature Source Temporal Temporal Pulse Rate 144 H 121 H Respiratory Rate 20 H 18 Blood Pressure 207/186 H 117/93 H 117/83 H Blood Pressure Mean 193 101 94 Pulse Ox 100 99 Positive well nourished and well developed Constitutional Narrative: Grossly intoxicated General Appearance ED: well developed and NAD HEENT Reports moist mucous membranes normocephalic and atraumatic Eyes PERRL and EOMs intact bilaterally Neck full ROM and supple Resp normal respiratory effort and clear to auscultation bilaterally Cardio regular rate, regular rhythm and no murmurs Rate: tachycardic GI non-tender and non-distended Auscultation: normoactive bowel sounds Palpation: soft Back/Spine no CVA tenderness General Back: other FROM Extremity normal to inspection General Extremety ED: Negative for edema, pulses abnormal or tenderness General Extremity: Negative for edema or pulses abnormal Neuro oriented x3, CN's II-XII intact bilaterally and no sensory deficits noted Sensorium / Orientation: awake and alert Motor Exam: strength 5/5 throughout Skin no rashes or lesions noted and no wounds MDM MDM MDM Narrative Medical decision making narrative: Labs obtained, he is hypokalemic which we started to replace, and he is a very high alcohol level 325 is well as signs of THC and benzos on toxicology. The rest of his labs show elevated liver enzymes consistent with injury due to alcohol, his total bilirubin is within normal limits. His INR is within normal limits. Patient given Zofran at his request, otherwise he remained stable will discuss with hospitalist for admission for detox. We did recheck his high blood pressure it was 117/93 on recheck. Lab Data Attestation: I reviewed the patient's lab results. Labs: Laboratory Results - last 24 hr 05/31/23 06/01/23 23:30 01:20 WBC 8.4 RBC 5.15 Hgb 17.4 H Hct 48.4 MCV 94.0 MCH 33.8 H MCHC 36.0 RDW Std Deviation 48.0 H RDW Coeff of Richa 14.0 Plt Count 212 MPV 9.1 Immature Gran % (Auto) 0.100 Neut % (Auto) 51.7 Lymph % (Auto) 37.7 [place] % (Auto) 9.1 Eos % (Auto) 0.6 Baso % (Auto) 0.8 Absolute Neuts (auto) 4.4 Absolute Lymphs (auto) 3.18 Nucleated RBC % 0 PT 14.6 INR 1.1 Sodium 135 L Potassium 2.8 L Chloride 100 Carbon Dioxide 29.0 Anion Gap 6 BUN 4 L Creatinine 1.01 Estim Creat Clear Calc 91.39 Est GFR (MDRD) Af Amer 102 Est GFR (MDRD) Non-Af 85 BUN/Creatinine Ratio 4.0 L Glucose 159 H Calcium 8.4 L Total Bilirubin 0.90 AST 494 H ALT 311 H Alkaline Phosphatase 136 H Total Protein 8.5 H Albumin 3.5 Globulin 5.0 H Albumin/Globulin Ratio 0.7 L Urine Opiates Screen NEGATIVE Urine Methadone Screen NEGATIVE Ur Barbiturates Screen NEGATIVE Ur Phencyclidine Scrn NEGATIVE Ur Amphetamines Screen NEGATIVE MDMA (Ecstasy) Screen NEGATIVE U Benzodiazepines Scrn POSITIVE H Urine Cocaine Screen NEGATIVE U Cannabinoids Screen POSITIVE H Ur Drug Screen Comment Ethyl Alcohol 325.0 H* Management Discussion w/another healthcare provider: Hospitalist Discharge Plan Dx/Rx/DC Orders Clinical Impression: Alcohol dependence, Alcohol intoxication, Hypokalemia Disposition Disposition: Acute Care [facility]
[2023-05-31 23:38] LABS: Absolute Lymphocyte Count 3.18 X10^3/uL (0.83-4.51); Absolute Neutrophil Count 4.4 X10^3/uL (2.0-7.7); Basophil# 0.07 X10^3/uL; Basophil% 0.8 % (0-1); Eosinophil# 0.05 X10^3/uL; Eosinophils% 0.6 % (0-5); Hematocrit 48.4 % (40-54); Hemoglobin 17.4 g/dL (13.0-16.5); Lymphocyte # 3.18 X10^3/ul (0.83-4.51); Lymphocyte % 37.7 % (19-41); Mean Corpuscular Hgb 33.8 pg (27.0-32.0); Mean Platelet Vol. 9.1 fl (6.2-12.0); Monocyte# 0.77 X10^3/uL; Monocyte% 9.1 % (0-10); NRBC Flagged by Analyzer 0 % (0-5); Neutrophil # 4.36 X10^3/uL (2.7-7.7); Neutrophil % 51.7 % (47-70); Platelet Count 212 K/mm3 (150-450); Red Blood Count 5.15 M/mm3 (4.6-6.2); White Blood Count 8.4 K/mm3 (4.4-11.0)
[2023-05-31 23:47] LABS: International Normalized Ratio 1.1; Prothrombin Time (Protime)PT. 14.6 SECONDS (11.7-14.9)
[2023-05-31] MEDS: Ondansetron 4 MG/2 ML Vial IV (23:56)
[2023-06-01] VITALS (7 sets, daily range): BP systolic 115–142; BP diastolic 83–100; PULSE 77–121; RESP 16–19; TEMP 36.2–36.9; O2SAT 93–99; BMI 35.9
[2023-06-01 00:02] LABS: ALB/GLOB Ratio 0.7 RATIO (0.9-2.4); AST(SGOT) 494 U/L (15-37); Alanine Aminotransfer ALT/SGPT 311 U/L (16-61); Albumin, Serum 3.5 g/dL (3.2-5.0); Alkaline Phosphatase 136 U/L (45-117); Anion Gap 6 (5-15); BUN 4 mg/dL (7-18); Calcium,Total 8.4 mg/dL (8.5-10.1); Chloride 100 mmol/L (98-107); Creatinine, Serum 1.01 mg/dL (0.70-1.30); EST Glomerular Filtration Rate 85 mL/min (>60); Est Glom Filt Rate - Afr Amer 102 mL/min (>60); Estimated Creatinine Clearance 91.39 ml/min; Glucose 159 mg/dL (74-106); Potassium 2.8 mmol/L (3.5-5.1); Protein, Total 8.5 g/dL (6.4-8.2); Sodium Level 135 mmol/L (136-145)
[2023-06-01] MEDS: Potassium Chloride Oral Tablet 20 MEQ 40 MEQ PO (01:21)
[2023-06-01 02:02] LABS: Amphetamine Urine VISTA NEGATIVE (<1000 ng/mL); Barbiturate Urine VISTA NEGATIVE (< 200 ng/mL); Benzodiazepine Urine VISTA POSITIVE (< 200 ng/mL); Cocaine Urine VISTA NEGATIVE (< 300 ng/mL); Ecstacy Urine VISTA NEGATIVE (< 500 ng/mL); Methadone Urine VISTA NEGATIVE (< 300 ng/mL); PCP Urine VISTA NEGATIVE (< 25 ng/mL); THC Urine VISTA POSITIVE (< 50 ng/mL); Vista UDS pH Range 6
--- NOTE | 2023-06-01 03:06 | HP.PCM.HOS_ITS ---
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 Reportedly patient drinks about 2/5 of alcohol per day. He drinks hard liquor. Last time he drank was on his way to the emergency department. Patient had been drinking about 10 years. He tried quitting about 2 to 3 days ago but he could not as he began to withdrawal. He reports withdrawal symptoms of nausea vomiting which prompted him to start drinking again. [facility] Medical History (Updated 06/01/23 @ 03:[address] Roman Calderon MD) Alcoholism Anxiety COVID-19 virus infection Desire for detoxification EtOH dependence Hepatitis C Heroin abuse Hypertension Tobacco abuse Home Medications buprenorphine 8 mg-naloxone 2 mg sublingual tablet 1 tab sublingual PRN PRN Withdrawal Symptoms 07/14/21 [History Last Taken 09/26/21] clonidine HCl 0.2 mg tablet 0.2 mg PO BID blood pressure #0 tabs 09/28/21 [Rx Last Taken 09/26/21] topiramate 100 mg tablet 100 mg PO BID bp 05/23/22 [History Last Taken Unknown] Allergy/AdvReac Type Severity Reaction Status Date / Time No Known Allergies Allergy Verified 05/31/23 22:53 Family History Other Addiction Surgical History (Updated 06/01/23 @ 03:[address] Roman Calderon MD) H/O brain surgery Social History Smoking Status: Heavy Smoker (>10/day) alcohol intake: former substance use type: former substance user Date of last use: Heroin and other details: Illicit benzodiazepines ROS ROS Narrative Pertinent positives and pertinent negatives as noted in HPI. All other systems were reviewed and are negative Vital Signs Vital Signs Vital Signs: 05/31/23 22:53 06/01/23 01:13 06/01/23 02:25 Temperature 97.8 F 97.4 F L Temperature Source Temporal Temporal Pulse Rate 144 H 121 H Respiratory Rate 20 H 18 Blood Pressure 207/186 H 117/93 H 117/83 H Blood Pressure Mean 193 101 94 Pulse Ox 100 99 Weight Weight: 111.3 kg Body Mass Index (BMI) 36.2 Physical Exam Narrative Physical exam: General: Well-nourished, well-developed. Head: Normocephalic, atraumatic, no tenderness Eyes: Vision is grossly intact. EOMI ENT: Whitish substance on tongue. Loss of multiple teeth. Neck: Nontender, No thyromegaly. CVS: Regular rate and rhythm. S1-S2 present. No murmur, gallop or rub. Respiratory : clear to auscultation bilaterally, chest wall nontender Abdomen: Soft, nontender, nondistended, normal bowel sounds, no masses : Deferred Back: Nontender, no CVA tenderness, no midline spinal tenderness, deformities, step-offs Extremities: Nontender full range of motion, no trauma Skin: Normal color, no trauma, abrasions Neuro: Lethargic, oriented, dysarthria. Psychiatry: Normal mood. Normal affect. Not depressed. Not anxious. Results Lab / Micro Data 05/31/23 23:30 05/31/23 23:30 Labs: Laboratory Results - last 24 hr 05/31/23 23:30: WBC 8.4, RBC 5.15, Hgb 17.4 H, Hct 48.4, MCV 94.0, MCH 33.8 H, MCHC 36.0, RDW Std Deviation 48.0 H, RDW Coeff of Richa 14.0, Plt Count 212, MPV 9.1, Immature Gran % (Auto) 0.100, Neut % (Auto) 51.7, Lymph % (Auto) 37.7, [place] % (Auto) 9.1, Eos % (Auto) 0.6, Baso % (Auto) 0.8, Absolute Neuts (auto) 4.4, Absolute Lymphs (auto) 3.18, Nucleated RBC % 0, PT 14.6, INR 1.1, Sodium 135 L, Potassium 2.8 L, Chloride 100, Carbon Dioxide 29.0, Anion Gap 6, BUN 4 L, Creatinine 1.01, Estim Creat Clear Calc 91.39, Est GFR (MDRD) Af Amer 102, Est GFR (MDRD) Non-Af 85, BUN/Creatinine Ratio 4.0 L, Glucose 159 H, Calcium 8.4 L, Total Bilirubin 0.90, AST 494 H, ALT 311 H, Alkaline Phosphatase 136 H, Total Protein 8.5 H, Albumin 3.5, Globulin 5.0 H, Albumin/Globulin Ratio 0.7 L, Ethyl Alcohol 325.0 H* 06/01/23 01:20: Urine Opiates Screen NEGATIVE, Urine Methadone Screen NEGATIVE, Ur Barbiturates Screen NEGATIVE, Ur Phencyclidine Scrn NEGATIVE, Ur Amphetamines Screen NEGATIVE, MDMA (Ecstasy) Screen NEGATIVE, U Benzodiazepines Scrn POSITIVE H, Urine Cocaine Screen NEGATIVE, U Cannabinoids Screen POSITIVE H, Ur Drug Screen Comment Assessment & Plan Assessment/Plan (1) Hypokalemia: (2) Alcohol abuse: PLAN: Plan Alcohol dependence and desire for detoxification Patient be started on phenobarbital and other adjunctive medications: Gabapentin as needed; dicyclomine as needed; Vistaril as needed; Imodium as needed; trazodone as needed; Zofran as needed; scheduled thiamine; and schedule folic acid. Monitor CIWA score. Hypertension Blood pressure is not within goal Clonidine continued. Trend. Hypokalemia Received potassium supplementation at the emergency department. Trend CMP. Ch augustus magnesium. Elevated liver enzymes Likely secondary to alcoholism. Trend. Tobacco abuse Counseled Nicotine patch prescribed. DVT prophylaxis Low risk Encourage to ambulate Time spent in the patient's overall evaluation,decision-making process, review of diagnostic data, adjustment of management, discussion with other providers, nursing nursing and ancillary staff involved in patient's care documentation, 70 minutes. Charges/Coding Visit Charges Inpatient E&M: 45076 Init Hosp L3
[2023-06-01 03:25] LABS: Magnesium 2.1 mg/dL (1.6-2.6)
[2023-06-01] MEDS: Gabapentin 300 MG Capsule PO ×2 (04:20→19:48)
[2023-06-01] MEDS: Phenobarbital 32.4 MG Tablet PO ×6 (04:20→23:13)
[2023-06-01] MEDS: Ondansetron 8 MG Tablet PO ×2 (04:20→14:43)
[2023-06-01 07:56] LABS: ALB/GLOB Ratio 0.7 RATIO (0.9-2.4); AST(SGOT) 413 U/L (15-37); Alanine Aminotransfer ALT/SGPT 261 U/L (16-61); Albumin, Serum 2.9 g/dL (3.2-5.0); Alkaline Phosphatase 108 U/L (45-117); Anion Gap 7 (5-15); BUN 4 mg/dL (7-18); BUN/Creat Ratio 5.2 RATIO (10-20); Chloride 103 mmol/L (98-107); Creatinine, Serum 0.77 mg/dL (0.70-1.30); EST Glomerular Filtration Rate 115 mL/min (>60); Est Glom Filt Rate - Afr Amer 139 mL/min (>60); Estimated Creatinine Clearance 119.87 ml/min; Globulin 4.4 g/dL (2.2-4.2); Glucose 104 mg/dL (74-106); Protein, Total 7.3 g/dL (6.4-8.2); Sodium Level 139 mmol/L (136-145)
[2023-06-01] MEDS: Thiamine Hydrochloride 100 MG Tablet PO (08:26)
[2023-06-01] MEDS: Folic Acid 1 MG Tablet PO (08:26)
[2023-06-01] MEDS: Topiramate 100 MG Tablet PO ×2 (08:26→22:15)
[2023-06-01] MEDS: hydrOXYzine PAM 25 MG Capsule 50 MG PO ×3 (08:27→22:35)
[2023-06-01] MEDS: Dicyclomine 10 MG Capsule 20 MG PO ×2 (08:27→19:48)
[2023-06-01] MEDS: cloNIDine HCl 0.2 MG Tablet PO ×2 (08:27→22:15)
--- NOTE | 2023-06-01 10:18 | CASEMGMT ---
Social Work Pt informed admitting RN he does not have LW, does have POA but is not able to bring in the document. Pt states [facility]lick Linder is his healthcare POA. [address]
--- NOTE | 2023-06-01 10:53 | ADDICTION ---
This typewriter repairer met with PT to conduct ASAM, MSE, AUDIT assessments and to plan for d/c. PT A+Ox4 and participated actively. All assessments completed and placed in PT's chart. PT plans to f/u with [facility] for follow-up treatment services. PT did not indicate a need for transportation post d/c from [facility].
--- NOTE | 2023-06-01 16:28 | PCM.PN.HOSP ---
Reason for Visit Reason for Visit: Diagnoses Hypokalemia (06/01/23) Alcohol abuse, uncomplicated (06/01/23) Subjective Subjective Patient was seen and examined today, he complains of feeling nauseous but does not complain of feeling anxious or tremorous. I talked briefly with addiction certified social workers in health care about his care. Objective Data Objective Data Vital Signs: Vital Signs Temp Pulse Resp BP Pulse Ox O2 Del Method 97.8 F 77 16 117/95 H 96 Room Air 06/01/23 14:32 06/01/23 14:32 06/01/23 14:32 06/01/23 14:32 06/01/23 14:32 06/01/23 14:32 Oxygen Delivery Method Room Air Weight: 110.5 kg Body Mass Index (BMI) 35.9 Intake & Output: Intake and Output for Last 24 Hours 05/30/23 05/31/23 06/01/23 23:59 23:59 23:59 Intake Total 100 / 100 Balance 100 / 100 Lab / Micro Data 05/31/23 23:30 06/01/23 06:00 Labs: Laboratory Results - last 24 hr 05/31/23 23:30: WBC 8.4, RBC 5.15, Hgb 17.4 H, Hct 48.4, MCV 94.0, MCH 33.8 H, MCHC 36.0, RDW Std Deviation 48.0 H, RDW Coeff of Richa 14.0, Plt Count 212, MPV 9.1, Immature Gran % (Auto) 0.100, Neut % (Auto) 51.7, Lymph % (Auto) 37.7, [place] % (Auto) 9.1, Eos % (Auto) 0.6, Baso % (Auto) 0.8, Absolute Neuts (auto) 4.4, Absolute Lymphs (auto) 3.18, Nucleated RBC % 0, PT 14.6, INR 1.1, Sodium 135 L, Potassium 2.8 L, Chloride 100, Carbon Dioxide 29.0, Anion Gap 6, BUN 4 L, Creatinine 1.01, Estim Creat Clear Calc 91.39, Est GFR (MDRD) Af Amer 102, Est GFR (MDRD) Non-Af 85, BUN/Creatinine Ratio 4.0 L, Glucose 159 H, Calcium 8.4 L, Magnesium 2.1, Total Bilirubin 0.90, AST 494 H, ALT 311 H, Alkaline Phosphatase 136 H, Total Protein 8.5 H, Albumin 3.5, Globulin 5.0 H, Albumin/Globulin Ratio 0.7 L, Ethyl Alcohol 325.0 H* 06/01/23 01:20: Urine Opiates Screen NEGATIVE, Urine Methadone Screen NEGATIVE, Ur Barbiturates Screen NEGATIVE, Ur Phencyclidine Scrn NEGATIVE, Ur Amphetamines Screen NEGATIVE, MDMA (Ecstasy) Screen NEGATIVE, U Benzodiazepines Scrn POSITIVE H, Urine Cocaine Screen NEGATIVE, U Cannabinoids Screen POSITIVE H, Ur Drug Screen Comment 06/01/23 06:00: Sodium 139, Potassium 3.0 L, Chloride 103, Carbon Dioxide 29.0, Anion Gap 7, BUN 4 L, Creatinine 0.77, Estim Creat Clear Calc 119.87, Est GFR (MDRD) Af Amer 139, Est GFR (MDRD) Non-Af 115, BUN/Creatinine Ratio 5.2 L, Glucose 104, Calcium 8.0 L, Total Bilirubin 0.90, AST 413 H, ALT 261 H, Alkaline Phosphatase 108, Total Protein 7.3, Albumin 2.9 L, Globulin 4.4 H, Albumin/Globulin Ratio 0.7 L Physical Exam Const alert, oriented x3, no apparent distress and healthy appearing General Appearance: cooperative, well kempt and well developed Orientation / Consciousness: awake, oriented to person, oriented to place and oriented to time HEENT normocephalic, head/scalp atraumatic and moist oral mucous membranes Eyes PERRL, EOMs intact bilaterally and conjunctivae normal Neck supple, no JVD, thyroid normal and no carotid bruits General: trachea midline Resp normal respiratory effort and clear to auscultation bilaterally Auscultation: Negative for rales, rhonchi or wheezes Cardio regular rate, regular rhythm, no murmurs, no rub and no gallops GI normal to inspection, nondistended, normoactive bowel sounds, soft to palpation, non-tender and non-distended Extremity no clubbing, cyanosis or edema Skin no rashes or lesions noted General Skin Exam: no breakdown Neuro oriented x3, CN's II-XII intact bilaterally, no focal motor deficits and no sensory deficits noted Neuro Narrative: Patient exhibits some mild slurring of the speech Sensorium / Orientation: awake and alert Psych affect normal Assessment & Plan Assessment/Plan (1) Alcohol abuse: PLAN: Plan 1. Acute alcohol withdrawal-continue phenobarb taper as ordered, observe and adjust medications as needed #2 essential hypertension-patient is on clonidine, monitor, evaluate, assess, and treat #3 chronic alcoholism-patient saw addiction certified social workers in health care today Total clinical time spent by myself addressing the patient's medical issues, reviewing all of his data, and collaborating with patient's care team: 25 minutes Charges/Coding Visit Charges Inpatient E&M: 75274 Subs Hosp L2
[2023-06-01] MEDS: Loperamide 2 MG Capsule PO (22:34)
[2023-06-02 04:26] VITALS: BP 142/92; PULSE 60; RESP 16; TEMP 36.2; O2SAT 98
[2023-06-02] MEDS: Phenobarbital 32.4 MG Tablet PO ×5 (04:28→20:06)
[2023-06-02] MEDS: Gabapentin 300 MG Capsule PO (04:32)
[2023-06-02] MEDS: Dicyclomine 10 MG Capsule 20 MG PO (04:32)
[2023-06-02 07:30] VITALS: O2SAT 98
[2023-06-02] MEDS: Folic Acid 1 MG Tablet PO (09:34)
[2023-06-02] MEDS: Thiamine Hydrochloride 100 MG Tablet PO (09:34)
[2023-06-02] MEDS: cloNIDine HCl 0.2 MG Tablet PO ×2 (09:36→21:21)
[2023-06-02] MEDS: Topiramate 100 MG Tablet PO ×2 (09:36→21:22)
[2023-06-02 10:00] VITALS: BP 124/70; PULSE 64; RESP 18; TEMP 37.2; O2SAT 98
[2023-06-02 17:02] VITALS: BP 134/78; PULSE 78; RESP 18; TEMP 37.1; O2SAT 98
--- NOTE | 2023-06-02 17:23 | PN.HOSP_ITS ---
Reason for Visit Reason for Visit: Diagnoses Hypokalemia (06/01/23) Alcohol abuse, uncomplicated (06/01/23) Subjective Subjective Patient was seen and examined today, he states he still feels a little bit nauseous but he is better today and he was able to eat. Patient also complains of some muscle aches. Objective Data Objective Data Vital Signs: Vital Signs Temp Pulse Resp BP Pulse Ox O2 Del Method 98.7 F 78 18 134/78 H 98 Room Air 06/02/23 17:02 06/02/23 17:02 06/02/23 17:02 06/02/23 17:02 06/02/23 17:02 06/02/23 17:02 Oxygen Delivery Method Room Air Weight: 110.5 kg Body Mass Index (BMI) 35.9 Intake & Output: Intake and Output for Last 24 Hours 05/31/23 06/01/23 06/02/23 23:59 23:59 23:59 Intake Total 100 / 300 1150 / 1150 Balance 100 / 300 1150 / 1150 Lab / Micro Data 05/31/23 23:30 06/01/23 06:00 Physical Exam Const alert, oriented x3, no apparent distress and healthy appearing General Appearance: cooperative, well kempt and well developed Orientation / Consciousness: awake, oriented to person, oriented to place and oriented to time HEENT normocephalic, head/scalp atraumatic and moist oral mucous membranes Eyes PERRL, EOMs intact bilaterally and conjunctivae normal Neck supple, no JVD, thyroid normal and no carotid bruits General: trachea midline Resp normal respiratory effort, no retractions, no use of accessory muscles and clear to auscultation bilaterally Auscultation: Negative for rales, rhonchi or wheezes Cardio regular rate, regular rhythm, S1 normal heart sound, S2 normal heart sound, no murmurs, no rub and no gallops GI normal to inspection, nondistended, normoactive bowel sounds, soft to palpation, non-tender and non-distended Extremity no clubbing, cyanosis or edema Skin no rashes or lesions noted General Skin Exam: no breakdown Neuro CN's II-XII intact bilaterally, moves all extremities, no focal motor deficits and no sensory deficits noted Sensorium / Orientation: awake, alert, oriented to person and oriented to place Speech: speech normal Psych affect normal Assessment & Plan Assessment/Plan (1) Alcohol abuse: PLAN: Plan 1. Acute alcohol withdrawal-continue phenobarb taper as ordered, observe and adjust medications as needed, patient does not appear sedated on his phenobarbital taper #2 essential hypertension-patient is on clonidine, monitor, evaluate, assess, and treat #3 chronic alcoholism-patient saw addiction vp digital marketing social media and crm, he will be participating in outpatient detox program Total clinical time spent by myself addressing the patient's medical issues, reviewing all of his data, and collaborating with patient's care team: 25 minutes Charges/Coding Visit Charges Inpatient E&M: 67123 Subs Hosp L1
[2023-06-02 20:00] VITALS: BP 127/94; PULSE 68; RESP 18; TEMP 36.4; O2SAT 97
[2023-06-02] MEDS: hydrOXYzine PAM 25 MG Capsule 50 MG PO (20:13)
[2023-06-02] MEDS: Ondansetron 8 MG Tablet PO (20:13)
[2023-06-02] MEDS: traZODone 100 MG Tablet PO (21:22)
[2023-06-03] MEDS: Phenobarbital 32.4 MG Tablet PO ×6 (00:22→23:43)
[2023-06-03 02:00] VITALS: BP 136/96; PULSE 57; RESP 18; TEMP 36.4; O2SAT 97
[2023-06-03] MEDS: Topiramate 100 MG Tablet PO ×2 (09:23→21:02)
[2023-06-03] MEDS: Thiamine Hydrochloride 100 MG Tablet PO (09:23)
[2023-06-03] MEDS: Folic Acid 1 MG Tablet PO (09:23)
[2023-06-03 09:30] VITALS: BP 110/90; PULSE 66; RESP 18; TEMP 36.2; O2SAT 97
[2023-06-03] MEDS: hydrOXYzine PAM 25 MG Capsule 50 MG PO ×3 (12:49→21:53)
--- NOTE | 2023-06-03 13:54 | PN.HOSP_ITS ---
Reason for Visit Reason for Visit: Diagnoses Hypokalemia (06/01/23) Alcohol abuse, uncomplicated (06/01/23) Subjective Subjective Patient was seen and examined today, he complains that he has some trouble sleeping at night but otherwise he feels better than yesterday. Patient does not complain of any nausea today. Objective Data Objective Data Vital Signs: Vital Signs Temp Pulse Resp BP Pulse Ox O2 Del Method 97.2 F L 66 18 110/90 H 97 Room Air 06/03/23 09:30 06/03/23 09:30 06/03/23 09:30 06/03/23 09:30 06/03/23 09:30 06/03/23 09:30 Oxygen Delivery Method Room Air Weight: 110.5 kg Body Mass Index (BMI) 35.9 Intake & Output: Intake and Output for Last 24 Hours 06/01/23 06/02/23 06/03/23 23:59 23:59 23:59 Intake Total 100 / 300 2350 / 2350 500 / 500 Balance 100 / 300 2350 / 2350 500 / 500 Lab / Micro Data 05/31/23 23:30 06/01/23 06:00 Physical Exam Const alert, oriented x3, no apparent distress, average body habitus and healthy appearing General Appearance: cooperative, well kempt and well developed Orientation / Consciousness: awake, oriented to person, oriented to place and oriented to time HEENT normocephalic, head/scalp atraumatic and moist oral mucous membranes Eyes PERRL, EOMs intact bilaterally and conjunctivae normal Neck supple, no JVD, thyroid normal and no carotid bruits General: trachea midline Resp normal respiratory effort, no retractions, no use of accessory muscles and clear to auscultation bilaterally Auscultation: Negative for rales, rhonchi or wheezes Cardio regular rate, regular rhythm, S1 normal heart sound, S2 normal heart sound, no murmurs, no rub and no gallops GI normal to inspection, nondistended, normoactive bowel sounds, soft to palpation, non-tender and non-distended Extremity no clubbing, cyanosis or edema Skin no rashes or lesions noted General Skin Exam: no breakdown Neuro oriented x3, CN's II-XII intact bilaterally, moves all extremities, no focal motor deficits and no sensory deficits noted Sensorium / Orientation: awake and alert Speech: speech normal Psych affect normal Assessment & Plan Assessment/Plan (1) Hypertension: (2) Alcohol abuse: PLAN: Plan 1. Acute alcohol withdrawal-continue phenobarb taper as ordered, observe and adjust medications as needed, patient does not appear sedated on his pheno barbital taper, again plan is for the patient to go into an outpatient detox program this Sunday. #2 essential hypertension-patient is on clonidine, monitor, evaluate, assess, and treat #3 chronic alcoholism-patient saw addiction clinical social worker, he will be participating in outpatient detox program Total clinical time spent by myself addressing the patient's medical issues, reviewing all of his data, and collaborating with patient's care team: 25 minutes Charges/Coding Visit Charges Inpatient E&M: 20553 Subs Hosp L1
[2023-06-03 15:30] VITALS: BP 134/102; PULSE 70; RESP 16; TEMP 36.6; O2SAT 96
[2023-06-03] MEDS: Gabapentin 300 MG Capsule PO ×2 (15:42→23:43)
[2023-06-03] MEDS: Nicotine Polacrilex 2 MG GUM PO ×2 (19:15→21:13)
[2023-06-03 20:58] VITALS: BP 138/97; PULSE 75; RESP 16; TEMP 36.4; O2SAT 96
[2023-06-03] MEDS: cloNIDine HCl 0.2 MG Tablet PO (21:02)
[2023-06-03] MEDS: traZODone 100 MG Tablet PO (21:23)
[2023-06-03 23:44] VITALS: BP 132/100; PULSE 63; RESP 16; TEMP 36.3; O2SAT 100
[2023-06-04] MEDS: hydrOXYzine PAM 25 MG Capsule 50 MG PO (01:42)
[2023-06-04] MEDS: Nicotine Polacrilex 2 MG GUM PO ×2 (03:42→08:27)
[2023-06-04] MEDS: Phenobarbital 32.4 MG Tablet PO ×3 (06:21→16:51)
[2023-06-04 06:24] VITALS: BP 113/80; PULSE 56; RESP 16; TEMP 36.4; O2SAT 96
[2023-06-04 08:20] VITALS: BP 120/86; PULSE 63; RESP 18; TEMP 36.7; O2SAT 97
[2023-06-04] MEDS: Folic Acid 1 MG Tablet PO (08:25)
[2023-06-04] MEDS: Thiamine Hydrochloride 100 MG Tablet PO (08:25)
[2023-06-04] MEDS: Gabapentin 300 MG Capsule PO (08:25)
[2023-06-04] MEDS: cloNIDine HCl 0.2 MG Tablet PO (08:26)
[2023-06-04] MEDS: Topiramate 100 MG Tablet PO (08:26)
--- NOTE | 2023-06-04 14:21 | DCINST_ITS ---
Discharge Instructions Diet Discharge Diet: No restrictions Activity Discharge Activity: Return to Normal Activity Weight Bearing Status: Full weight bearing Follow Up Care Test Results: Test results from this visit will be discussed in further detail at your follow- up appointment, if applicable. Discharge Plan Admission Admit Date/Time: 06/01/23 02:58 Primary Reason for Your Visit: Acute alcohol detox Attending Provider: Fede Farrar Primary Care Provider: Care Physician,No Primary Consulting Providers: Roman Calderon Instructions Additional Instructions / Restrictions: Follow-up with [facility] as arranged Discharge Orders/Prescriptions Prescriptions: Continued buprenorphine-naloxone 8-2 mg Tablet, Sublingual 1 tab SUBLINGUAL PRN PRN (Reason: Withdrawal Symptoms) clonidine HCl 0.2 mg Tablet 0.2 mg PO BID Qty: 0 0RF Rx Instructions: Hold for heart less than 60 or systolic blood pressure less than 120 mmHg. topiramate 100 mg tablet 100 mg PO BID clonazepam 1 mg tablet Patient Comments: TAKE 1 TABLET BY MOUTH BY MOUTH EVERY NIGHT AT BEDTIME Referrals / Follow Up: Care Physician,No Primary [Primary Care Provider] - Disposition Disposition (needs filled in before D/C Order can be placed): Home, Self Care
--- NOTE | 2023-06-04 14:24 | PCM.DC.SUM ---
Providers Date of Admission: 06/01/23 Date of Discharge: 06/04/23 Primary Care Physician: No Primary Care Phys Reason For Visit: DESIRE FOR ALCOHOL DETOXIFICATION Diagnosis Discharge Diagnosis (1) Hypertension: Status: Acute Code(s): I10 - Essential (primary) hypertension (2) Alcohol abuse: Status: Acute Code(s): F10.10 - Alcohol abuse, uncomplicated Plan 1. Acute alcohol withdrawal-continue phenobarb taper as ordered, observe and adjust medications as needed, patient does not appear sedated on his phenobarbital taper, again plan is for the patient to go into an outpatient detox program this Sunday. #2 essential hypertension-patient is on clonidine, monitor, evaluate, assess, and treat #3 chronic alcoholism-patient saw addiction psychotherapist social worker, he will be participating in outpatient detox program Total clinical time spent by myself addressing the patient's medical issues, reviewing all of his data, and collaborating with patient's care team: 25 minutes Medications at Discharge Home Medications buprenorphine 8 mg-naloxone 2 mg sublingual tablet 1 tab sublingual PRN PRN Withdrawal Symptoms 07/14/21 clonidine HCl 0.2 mg tablet 0.2 mg PO BID blood pressure #0 tabs 09/28/21 topiramate 100 mg tablet 100 mg PO BID bp 05/23/22 clonazepam 1 mg tablet mg anxiety 06/03/23 Hospital Course Operations None Procedures None Summary of Care Provided Minutes Spent on Discharge: 30 Hospital Course: This 48-year-old white male was seen in the emergency room at [facility] desiring services for alcohol detox. Patient had been hospitalized here approximately a year ago for the same reason. Patient was admitted to [place] [id number], orders were entered using the alcohol detox order set, the patient had no agitation during his hospitalization. Arrangements were made for the patient to follow-up with [facility] outpatient detox on his discharge from the hospital. On 06/04/2023, patient was seen and examined: On examination he appeared in good health and spirits. Vital signs as documented. Skin warm and dry and without overt rashes. Neck without JVD, neck was supple, trachea midline, thyroid was normal. Lungs clear bilaterally, normal air movement was noted. Heart exam notable for regular rhythm, normal sounds and absence of murmurs, rubs or gallops. Abdomen unremarkable and without evidence of organomegaly, masses, or abdominal aortic enlargement. Bowel sounds are present, abdomen is not distended. Extremities nonedematous, no cyanosis was noted, no clubbing was noted. Neuro: Cranial nerves II through XII are grossly intact, no focal motor deficits were noted, sensation to light touch and pinprick intact, motor exam 5/5 throughout. Psych: Patient is alert and oriented x3, he does not appear anxious or depressed, he does not appear agitated. Patient was discharged in stable condition on 06/04/2023, patient requested to be discharged home on that date and promised to follow-up with outpatient detox. Weight / BMI Weight Weight: 110.5 kg Body Mass Index (BMI) 35.9 ABG / Lab / Microbiology Data 05/31/23 23:30 06/01/23 06:00 D/C Instructions Discharge Diet: No restrictions Weight Bearing Status: Full weight bearing Meaningful Use Info Meaningful Use Diagnoses (Choose all that apply): None applicable Discharge Plan Admission Admit Date/Time: 06/01/23 02:58 Primary Reason for Your Visit: Acute alcohol detox Attending Provider: Fede Farrar Primary Care Provider: Care Physician,Maddi Primary Consulting Providers: Roman Calderon Instructions Additional Instructions / Restrictions: Follow-up with [facility] as arranged Discharge Orders/Prescriptions Prescriptions: Continued buprenorphine-naloxone 8-2 mg Tablet, Sublingual 1 tab SUBLINGUAL PRN PRN (Reason: Withdrawal Symptoms) clonidine HCl 0.2 mg Tablet 0.2 mg PO BID Qty: 0 0RF Rx Instructions: Hold for heart less than 60 or systolic blood pressure less than 120 mmHg. topiramate 100 mg tablet 100 mg PO BID clonazepam 1 mg tablet Patient Comments: TAKE 1 TABLET BY MOUTH BY MOUTH EVERY NIGHT AT BEDTIME Referrals / Follow Up: Care Physician,Maddi Primary [Primary Care Provider] - Disposition Disposition (needs filled in before D/C Order can be placed): Home, Self Care Charges/Coding Visit Charges Inpatient E&M: 67586 Disch Hosp
[2023-06-04 14:30] VITALS: BP 121/95; PULSE 55; RESP 18; TEMP 36.6; O2SAT 95
== END 2023-06-04 17:22 | disposition home or self-care (01) | DRG 773 ==
LOC: ED 23:52 → MS3 06-01 03:10
PROVIDERS: Admitting Provider Hospitalist; Emergency Provider Emergency Medicine; Visit Provider Internal Medicine
DX: F10.229 Alcohol dependence with intoxication, unspecified (principal); F11.90 Opioid use, unspecified, uncomplicated; E87.6 Hypokalemia; I10 Essential (primary) hypertension; F41.9 Anxiety disorder, unspecified; F17.200 Nicotine dependence, unspecified, uncomplicated; Z86.16 Personal history of COVID-19; Y90.8 Blood alcohol level of 240 mg/100 ml or more
CPT/HCPCS: 36415; 80053; 80307; 82077; 83735; 85025; 85610; 99283; 99406; A4216; J2405